=== PATIENT | female | born 1945 | race Caucasian/White ===

== ENCOUNTER 2016-07-12 12:48 | Day surgery (SDC) | payer MEDICARE ==
[2016-07-12 13:14] VITALS: BP 129/72; PULSE 78; RESP 20; TEMP 97.8; O2SAT 98
[2016-07-12] MEDS ORDERED: FISH120014 (13:23)
[2016-07-12] MEDS ORDERED: LABE300T PO (13:23)
[2016-07-12] MEDS ORDERED: [UNRECOGNIZED DRUG - CODE] PO (13:23)
[2016-07-12] MEDS ORDERED: MULTCAP13 (13:23)
[2016-07-12] MEDS ORDERED: HUMI40KI SQ (13:23)
[2016-07-12] MEDS ORDERED: FOLI5CAP PO (13:23)
[2016-07-12] MEDS ORDERED: GLUC1CAP16 (13:23)
--- NOTE | 2016-07-12 16:53 | RADRPT ---
EXAM DATE/TIME: 07/12/2016 00:00 [facility] COMPARISON : No previous studies available for comparison. INDICATIONS : Consult OBJECTIVE: Temperature: 97.8 Heart Rate: 78 Blood Pressure: 129/72 Respiratory: 20 Oximetry: 98 PNEUMONIA VACCINE: NO HISTORY OF PRESENT ILLNESS: The patient is a 71-year-old with a three-month history of left lower extremity claudication. The pat ient states she is able to walk approximately 3 blocks at which time she experiences significant cram ping in the left calf. She states this is significantly impacting per lifestyle. The patient underwen t CT angiography with bilateral lower extremity runoff at [facility]. This demonstrated diffuse moderate vascular disease. The patient states she was a 2 pack a day smoker until approximately 12 y ears ago and has not smoked since. PAST MEDICAL HISTORY : 1. Hypertension. 2. Hypercholesterolemia. 3. psoriatic arthritis 4. fatty liver 5. ocular migraines PAST SURGICAL HISTORY : 1. Appendectomy. 2. cataract surgery, bilat SOCIAL HISTORY : Social alcohol use. ALLERGIES: 1. Sulfaplaquennil 2. remicade 3. simvastatin 4. trazodone 1. labetalol 300 mg mg b.i.d. exforgeHCT 5-160-12.5 mg q.d. folic acid 1 mg q.d. humira 40 mg prn PHYSICAL EXAMINATION: Mildly obese 71-year-old white female in no acute distress. There is a faintly palpable dorsalis pedis pulse in the left foot. The posterior tibial pulse on the left is faintly dopplerable. On the right, there is a dopplerable dorsalis pedis and posterior tibial . There is no evidence of tissue loss within either foot. There is adequate capillary refill. Cardiovascular: Regular rate and rhythm. Lungs: CTA. IMAGING STUDIES: The patient's CT angiogram from [facility] was reviewed. ASSESSMENT: 71-year-old with life limiting claudication in the left lower extremity. CT angiography demonstrates fairly diffuse vascular disease. PLAN: The patient will be scheduled for angiogram and runoff with possible atherectomy on the left. The [facility] ient was advised the CT scan demonstrated densely calcified atherosclerotic plaques and this may not be amenable to atherectomy for treatment. The risk, benefits and potential palpitations were discussed in detail. The patient understands these risks. TIME SPENT: 30 minutes Javier Schneider MD on July 12, 2016 at 16:46 Board Certified Radiologist. This report was verified electronically.
== END 2016-07-12 14:00 | disposition home or self-care (01) ==
LOC: HROP 12:48 → HRIP 12:50 → HROP 14:00
PROVIDERS: ATTEND Family Medicine
DX: I73.9 Peripheral vascular disease, unspecified (principal); I10 Essential (primary) hypertension; E78.00 Pure hypercholesterolemia, unspecified

== ENCOUNTER 2016-07-19 07:22 | Inpatient (IN) | payer MEDICARE ==
[~2016-07-19] VITALS: Ht 172.7 cm; Wt 91.5 kg
[~2016-07-19 07:22] MED LIST: FISH120014; FOLI5CAP PO; GLUC1CAP16; HUMI40KI SQ; LABE300T PO; MULTCAP13; [UNRECOGNIZED DRUG - CODE] PO
[2016-07-19 07:41] VITALS: BP 143/79; PULSE 72; RESP 20; TEMP 97.9; O2SAT 94
[2016-07-19 08:24] LABS: AUTOMATED NEUTROPHIL # 2.6 TH/MM3 (1.8-7.7); BASOPHIL % 0.6 % (0.0-2.0); EOSINOPHIL # 0.1 TH/MM3 (0-0.4); EOSINOPHIL % 2.4 % (0.0-4.0); HEMATOCRIT 36.7 % (35.0-46.0); HEMO FLAGS DIFF FINAL; LYMPH % 33.8 % (9.0-44.0); LYMPHOCYTE # 1.7 TH/MM3 (1.0-4.8); MEAN CELL VOLUME 98.7 FL (80.0-100.0); MEAN CORPUSCULAR HEMOGLOBIN 34.4 PG (27.0-34.0); MEAN CORPUSCULAR HGB CONC 34.9 % (32.0-36.0); MONO % 13.1 % (0.0-8.0); NEUT % 50.1 % (16.0-70.0); PLATELET COUNT 159 TH/MM3 (150-450); RED BLOOD COUNT 3.72 MIL/MM3 (4.00-5.30); WHITE BLOOD COUNT 5.2 TH/MM3 (4.0-11.0)
[2016-07-19 08:36] LABS: APTT (PATIENT) 28.9 SEC (24.3-30.1); PROTHROMBIN TIME - PATIENT 11.4 SEC (9.8-11.6)
[2016-07-19 08:43] LABS: BICARBONATE 25.9 MEQ/L (21.0-32.0); POTASSIUM 3.7 MEQ/L (3.5-5.1)
[2016-07-19] MEDS ORDERED: MIDAZOLAM HCL 5 MG/5 ML VIAL ONE ×2 (10:45→11:43)
[2016-07-19] MEDS ORDERED: fentaNYL CITRATE 250 MCG/5 ML AMP ONE ×3 (10:45→17:27)
[2016-07-19] MEDS: SODIUM CHLOR 0.9% 1000 ML INJ 1,000 ML IV SCH ×3 (10:50→17:28)
[2016-07-19] MEDS ORDERED: HEPARIN SODIUM - IV 10,000 UNITS/10 ML VIAL ONE (11:46)
[2016-07-19] MEDS ORDERED: LACTATED RINGER'S 1000 ML INJ 1,000 ML IV ONE (12:00)
[2016-07-19] MEDS ORDERED: ONDANSETRON HCL 4 MG/2 ML VIAL IV PUSH ONE (12:00)
[2016-07-19] MEDS ORDERED: ePHEDrine/NS 25 MG/5 ML SYR IV ONE (12:00)
[2016-07-19] MEDS ORDERED: PROPOFOL 200 MG/20 ML AMP IV ONE (12:00)
[2016-07-19] MEDS ORDERED: SODIUM CHLOR 0.9% 250 ML INJ 250 ML IV ONE (12:00)
[2016-07-19] MEDS ORDERED: HEPARIN - 10,000 UNITS/ML IV ADDITIVE OTHER ONE (12:00)
[2016-07-19] MEDS ORDERED: NEOSTIGMINE 3 MG/3 ML SYR IV ONE (12:00)
[2016-07-19] MEDS ORDERED: SODIUM CHLORID 0.9% 500 ML INJ 500 ML IV ONE (12:00)
[2016-07-19] MEDS ORDERED: PHENYLEPH/NS 1000 MCG/10 ML SYR IV ONE (12:00)
[2016-07-19] MEDS ORDERED: NORMOSOL R INJ 4,000 ML IV ONE (12:00)
[2016-07-19] MEDS ORDERED: SODIUM CHLOR 0.9% 1000 ML INJ 1,000 ML IV SCH (13:25)
[2016-07-19] MEDS ORDERED: ceFAZolin INJ 1,000 MG VIAL IV ONE (13:26)
--- NOTE | 2016-07-19 13:29 | PD.RAD ---
Post Procedure Progress Note Pre Procedure Diagnosis: (1) Peripheral vascular disease Post Procedure Diagnosis: (1) Peripheral vascular disease Procedure Date: Jul 19, 2016 Supervising Radiologist: Godwin Abraham Proceduralist/Assist: Cassie Monte RT(R)(), Zenia Alas RT(R)() Anesthesia: Conscious Sedation Plan of Activity Patient to Unit: ROPU Patient Condition: Good See PACS Report for procedural detail/treatment Vascular-Arterial Procedure Procedure 1 Procedure Site: Left Leg Procedure(s): Angiogram, Atherectomy (vessel perforation patient to OR for repair) Access Access Site(s): Right Femoral Artery Closure Site(s): Right vascular closure device Godwin Abraham MD Jul 19, 2016 13:29
[2016-07-19] MEDS ORDERED: oxyCODONE/ACETAMINOPHEN 5 MG/325 MG TAB PO PRN (13:30)
[2016-07-19] MEDS ORDERED: HEPARIN SODIUM - SQ 10,000 UNITS/ML VIAL OTHER ONE (13:37)
[2016-07-19] MEDS ORDERED: IODIXANOL 320 MG/ML 50 ML VIAL (for RAD SPEC) I-ARTERIAL ONE (13:49)
[2016-07-19 14:16] LABS: BLOOD GAS CARBOXYHEMOGLOBIN 1.8 % (0-4); BLOOD GAS HCO3 22 mmol/L (22-26); BLOOD GAS METHEMOGLOBIN 0.9 % (0-2); BLOOD GAS O2 HGB SATURATION 97 % (90-100); BLOOD GAS OXYGEN CONTENT 18.2 Vol % (12.0-20.0); BLOOD GAS PCO2 40 mmHg (38-42); BLOOD GAS PO2 219 mmHg (61-120); TEMP CORR TO 98.6
[2016-07-19 14:17] LABS: CRITICAL VALUE NO; DRAW SITE ART LINE; FIO2 57 %; OXYGEN DEVICE SEE OR CHART; STAT YES
[2016-07-19 15:11] LABS: HEMATOCRIT 26.6 % (35.0-46.0); REVIEW FLAG FINAL
[2016-07-19 16:01] LABS: AUTOMATED NEUTROPHIL # 3.1 TH/MM3 (1.8-7.7); BASOPHIL % 0.7 % (0.0-2.0); EOSINOPHIL # 0.1 TH/MM3 (0-0.4); EOSINOPHIL % 2.4 % (0.0-4.0); HEMATOCRIT 24.7 % (35.0-46.0); HEMO FLAGS DIFF FINAL; LYMPH % 34.4 % (9.0-44.0); MEAN CELL VOLUME 99.7 FL (80.0-100.0); MEAN CORPUSCULAR HEMOGLOBIN 35.2 PG (27.0-34.0); MEAN CORPUSCULAR HGB CONC 35.3 % (32.0-36.0); MONO % 9.4 % (0.0-8.0); NEUT % 53.1 % (16.0-70.0); PLATELET COUNT 146 TH/MM3 (150-450); RED BLOOD COUNT 2.47 MIL/MM3 (4.00-5.30); RED CELL DISTRIBUTION WIDTH 12.9 % (11.6-17.2); WHITE BLOOD COUNT 5.9 TH/MM3 (4.0-11.0)
[2016-07-19 16:08] LABS: BLOOD GAS BASE EXCESS -1.5 mmol/L (-2-2); BLOOD GAS CARBOXYHEMOGLOBIN 2.2 % (0-4); BLOOD GAS HCO3 23 mmol/L (22-26); BLOOD GAS O2 HGB SATURATION 97 % (90-100); BLOOD GAS OXYGEN CONTENT 11.9 Vol % (12.0-20.0); BLOOD GAS PCO2 38 mmHg (38-42); BLOOD GAS PO2 240 mmHg (61-120); BLOOD GAS TOTAL HGB 8.3 G/DL (12.0-16.0); CRITICAL VALUE NO; DRAW SITE ART LINE; OXYGEN DEVICE VENTILATOR; STAT YES; TEMP CORR TO 98.6; VENT SETTINGS IN OR
[2016-07-19] MEDS ORDERED: MIDAZOLAM HCL 2 MG/2 ML VIAL ONE (17:27)
[2016-07-19] MEDS ORDERED: MORPHINE SULFATE 4 MG/ML INJ IV PRN (17:30)
[2016-07-19] MEDS ORDERED: NALOXONE HCL 0.4 MG/ML AMP IV PRN (17:30)
[2016-07-19] MEDS ORDERED: ONDANSETRON HCL 4 MG/2 ML VIAL IV PRN (17:30)
[2016-07-19] MEDS ORDERED: Post-op Orders (for Pharmacy) MISC XX ONE (17:30)
[2016-07-19] MEDS ORDERED: SODIUM CHLORIDE 0.9% FLUSH 5 ML FLUSH IVF PRN (17:30)
--- NOTE | 2016-07-19 17:49 | RADRPT ---
EXAM DATE/TIME: 07/19/2016 10:55 [facility] COMPARISON: No previous studies available for comparison. INDICATIONS : Patient with intermitent claudication left leg. MEDICAL HISTORY : 1. RA 2. PAD 3. Thoracic aneurysm 4. PAD 5. HTN SURGICAL HISTORY : 1. Appendectomy 2. Bilateral cataract surgery ENCOUNTER: Initial ACUITY: 2 months PAIN SCORE: 0/10 FLUORO TIME: 20.3 minutes IMAGE SERIES: 13 ACCESS SITE: Right Femoral artery SEDATION TIME: 105 minutes CONTRAST: 1.) 100 cc Visipaque (iodixanol) MEDICATION(S): 1.) 7 mg midazolam (Versed) IV 2.) 350 mcg fentanyl (Sublimaze) IV DEVICE(S): 1.) Right common femoral artery 8 fr Angio-Seal 2.) Left superficial femoral artery LSC atherectomy device 3.) Left superficial femoral artery 5 SpideRX embolic protection PROCEDURE : 1. Ultrasound-guided puncture of the access site. 2. Angiography of the access site prior to closure device. 3. Conscious sedation with continuous EKG and Oximetry monitoring. 4. Percutaneous closure of the access site. 5. Angiography of the left lower Dillon he be a left common femoral artery approach 6. atherectomy of the left superficial femoral artery The risks, benefits and alternatives to the procedure were explained and verbal and written consent w as obtained. The site was prepped in sterile fashion. Full sterile technique was used, including ca p, mask, sterile gloves and gown and a large sterile sheet. Hand hygiene and 2% chlorhexidine and/or betadine/alcohol prep was utilized per protocol for cutaneous antisepsis. The skin and subcutaneous tissues were infiltrated with local anesthetic solution. With ultrasound and fluoroscopic guidance the selected artery was punctured and a vascular sheath was placed. Angiography of the common femoral artery was performed for evaluation prior to percutaneous closure device placement. An omni-flush catheter was placed over the aortic bifurcation into the left common iliac artery where angiography was performed demonstrating a patent external iliac and common femoral artery. The manuel ter was advanced into the common femoral artery were selective on of the left lower kidney was perfor med. The diagnostic portion examination demonstrates focal high-grade stenosis involving the origin of the superficial femoral artery greater than 90% with a second tandem stenosis 5 cm more distally. The re mainder of the runoff is intact. No inflow stenosis is identified. The catheter was exchanged for a 8 Mongolian sheath which was placed in the left common femoral artery. Over a guidewire atherectomy was performed of the proximal superficial femoral artery. Followup angio graphy demonstrated contained rupture over this segment. The procedure was terminated at this point a nd the patient is to go to the operating room for open repair. Hemostasis was obtained with the prescribed medicated closure device. Conscious sedation was perform ed with the prescribed dosages and duration as above in the presence of an independent trained radiol ogy nurse to assist in the monitoring of the patient. EKG and oximetry remained stable throughout th e procedure. CONCLUSION: 1. Contained rupture of the proximal superficial femoral artery following atherectomy. The patient is to go to the operating room for surgical repair. Godwin Abraham MD on July 19, 2016 at 17:44 Board Certified Radiologist. This report was verified electronically.
[2016-07-19] MEDS ORDERED: ACETAMINOPHEN 1000 MG/100 ML VIAL IV ONE (18:04)
[2016-07-19 18:26] LABS: HEMATOCRIT 28.8 % (35.0-46.0); REVIEW FLAG FINAL
[2016-07-19] MEDS ORDERED: DO NOT ADM ANY ANTICOAGULANT DRUGS XX PRN (18:30)
[2016-07-19 18:40] VITALS: BP 115/60; PULSE 80; RESP 18; TEMP 98; O2SAT 96
[2016-07-19 19:00] VITALS: BP_SYST 105; BP_SYST 112; BP_DIAS 46; BP_DIAS 58; PULSE 75; RESP 18; TEMP 97.9; O2SAT 92
[2016-07-19] MEDS: CLINDAMYCIN INJ 600 MG in SODIUM CHLORIDE 0.9% INJ 50 ML IV SCH (20:11)
[2016-07-19] MEDS: PANTOPRAZOLE SOD 40 MG DELAYED RELEASE TAB PO SCH (20:11)
[2016-07-19] MEDS: SODIUM CHLORIDE 0.9% FLUSH 5 ML FLUSH IVF SCH (20:12)
[2016-07-19 22:15] VITALS: O2SAT 93
[2016-07-19 23:00] VITALS: BP_SYST 114; BP_SYST 127; BP_DIAS 49; BP_DIAS 60; PULSE 67; PULSE 75; RESP 18; TEMP 98.2; O2SAT 94
[2016-07-20] VITALS (13 sets, daily range): BP systolic 82–150; BP diastolic 48–77; PULSE 73–120; RESP 18–22; TEMP 97.6–100; O2SAT 92–98
[2016-07-20] MEDS: oxyCODONE/ACETAMINOPHEN 5 MG/325 MG TAB PO PRN ×3 (00:44→12:23)
[2016-07-20] MEDS: CLINDAMYCIN INJ 600 MG in SODIUM CHLORIDE 0.9% INJ 50 ML IV SCH ×2 (02:00→09:33)
[2016-07-20] MEDS: SODIUM CHLOR 0.9% 1000 ML INJ 1,000 ML IV SCH ×3 (03:28→23:28)
[2016-07-20 04:50] LABS: AUTOMATED NEUTROPHIL # 4.4 TH/MM3 (1.8-7.7); BASOPHIL % 0.6 % (0.0-2.0); EOSINOPHIL # 0.1 TH/MM3 (0-0.4); EOSINOPHIL % 2.1 % (0.0-4.0); HEMATOCRIT 31.5 % (35.0-46.0); HEMO FLAGS DIFF FINAL; LYMPH % 20.1 % (9.0-44.0); LYMPHOCYTE # 1.4 TH/MM3 (1.0-4.8); MEAN CELL VOLUME 95.9 FL (80.0-100.0); MEAN CORPUSCULAR HEMOGLOBIN 33.5 PG (27.0-34.0); MEAN CORPUSCULAR HGB CONC 34.9 % (32.0-36.0); MONO % 12.6 % (0.0-8.0); NEUT % 64.6 % (16.0-70.0); PLATELET COUNT 106 TH/MM3 (150-450); RED BLOOD COUNT 3.29 MIL/MM3 (4.00-5.30); RED CELL DISTRIBUTION WIDTH 16.7 % (11.6-17.2); WHITE BLOOD COUNT 6.9 TH/MM3 (4.0-11.0)
[2016-07-20 05:30] LABS: BICARBONATE 24.9 MEQ/L (21.0-32.0); POTASSIUM 3.7 MEQ/L (3.5-5.1)
[2016-07-20 06:13] LABS: CALCIUM-PROTEIN CORRECTED 7.9 MG/DL (8.5-10.1)
[2016-07-20] MEDS: SODIUM CHLORIDE 0.9% FLUSH 5 ML FLUSH IVF SCH ×2 (08:19→23:28)
[2016-07-20] MEDS: CLOPIDOGREL 75 MG TAB PO SCH (08:41)
[2016-07-20] MEDS ORDERED: DILTIAZEM INJ 125 MG in SODIUM CHLORIDE 0.9% INJ 100 ML IV SCH (11:45)
[2016-07-20] MEDS ORDERED: DILTIAZEM HCL 25 MG/5 ML VIAL ONE (11:47)
[2016-07-20] MEDS: LABETALOL HCL 300 MG TAB PO SCH ×2 (12:48→23:27)
[2016-07-20] MEDS ORDERED: SODIUM CHLORID 0.9% 500 ML INJ 500 ML IV SCH (14:30)
[2016-07-20] MEDS: ENOXAPARIN SODIUM 40 MG/0.4 ML SYRINGE SQ SCH (16:08)
--- NOTE | 2016-07-20 16:46 | PD.CONS ---
HPI Service [facility] Consult Requested By Dr. Wheeler Reason for Consult medical management Primary Care Physician Evie Goldman MD Diagnoses: History of Present Illness 71 y/o with severe PVD who p/w left femoral artery repair. Patient had elective procedure done by IR on 07/19/16 left atherectomy that perforated so went to OR for femoral bypass graft. [facility] consulted for medical management. Spoke to patient's nurse who stated patient went to atrial fibrillation with RVR. She was given Cardizem and became hypotensive, but that was stopped and BP was improved. patient was then put back labetalol and went back into sinus rhythm. Datacap Developer was consulted. Patient stated she is ambulating but sore at the wound site otherwise she stated she is doing well and pain is controlled. She denied any claudication with recent ambulation. Denied any CP, SOB, palpitation, and lightheadedness/dizziness. Review of Systems Constitutional: DENIES: Diaphoretic episodes, Fatigue, Fever, Weight gain, Weight loss, Chills, Dizziness, Change in appetite, Night Sweats Endocrine: DENIES: Abnorml menstrual pattern, Heat/cold intolerance, Polydipsia , Polyuria, Polyphagia Eyes: DENIES: Blurred vision, Diplopia, Eye inflammation, Eye pain, Vision loss , Photosensitivity, Double Vision Ears, nose, mouth, throat: DENIES: Tinnitus, Hearing loss, Vertigo, Nasal discharge, Oral lesions, Throat pain, Hoarseness, Ear Pain, Running Nose, Epistaxis, Sinus Pain, Toothache, Odynophagia Respiratory: DENIES: Apneas, Cough, Snoring, Wheezing, Hemoptysis, Sputum production, Shortness of breath Cardiovascular: DENIES: Chest pain, Palpitations, Syncope, Dyspnea on Exertion , PND, Lower Extremity Edema, Orthopnea, Claudication Gastrointestinal: DENIES: Abdominal pain, Black stools, Bloody stools, Constipation, Diarrhea, Nausea, Vomiting, Difficulty Swallowing, Anorexia Genitourinary: DENIES: Abnormal vaginal bleeding, Dysmenorrhea, Dyspareunia, Sexual dysfunction, Urinary frequency, Urinary incontinence, Urgency, Hematuria , Dysuria, Nocturia, Vaginal discharge Musculoskeletal: DENIES: Joint pain, Muscle aches, Stiffness, Joint Swelling, Back pain, Neck pain Integumentary: DENIES: Abnormal pigmentation, Pruritus, Rash, Nail changes, Breast masses, Breast skin changes, Nipple discharge Hematologic/lymphatic: DENIES: Bruising, Lymphadenopathy Immunologic/allergic: DENIES: Eczema, Urticaria Neurologic: DENIES: Abnormal gait, Headache, Localized weakness, Paresthesias, Seizures, Speech Problems, Tremor, Poor Balance Psychiatric: DENIES: Anxiety, Confusion, Mood changes, Depression, Hallucinations, Agitation, Suicidal Ideation, Homicidal Ideation, Delusions Past Family Social History Allergies: Coded Allergies: Remicade (Verified Adverse Reaction, Severe, severe nausea and vomiting, ) Plaquenil (Verified Adverse Reaction, Intermediate, get migraine headache , 07/12/16) Simvastatin (Verified Adverse Reaction, Intermediate, migraine headache, ) Sulfa (Verified Adverse Reaction, Intermediate, migraine headaches, 07/12/16 ) Trazodone (Verified Adverse Reaction, Intermediate, migraine headache, 07/12) Past Medical History severe PVD psoriatic arthritis hypertension Past Surgical History appendectomy Reported Medications Reported Meds & Active Scripts Active Reported Multi Complete (Multiple Vitamins W/ Minerals) 1 Cap Cap DAILY Fish Oil ([place]-3 Fatty Acids) 1,200 Mg Cap 2,000 BID Glucosamine Chondroitin (Sljjvccamin-Fgqnimribzb-Rqc C-) 1 Cap Cap Humira 2-Pack Inj (Adalimumab 2-Pack Inj) 40 Mg/0.8 Ml Syr 40 Mg SQ Q14D Folic Acid 5 Mg Cap 1 Mg PO DAILY Exforge Hct (Hddxylyuyu-Iyiyjykzm-Ksghjsccqbtllxzwajn) 5-160-12.5 Mg Tab 1 Tab PO DAILY Labetalol (Labetalol HCl) 300 Mg Tab 300 Mg PO BID Active Ordered Medications Current Medications Sodium Chloride (NS 1000 ml Inj) 1,000 ml @ 100 mls/hr Q10H IV Last administered on 07/19/16 15:05; Start 07/19/16 at 07:45 Midazolam HCl (Versed Inj) 5 mg STK-MED ONCE .ROUTE Last administered on 10:45; Start 07/19/16 at 10:45; Stop 07/19/16 at 10:46; Status DC Fentanyl Citrate (fentaNYL INJ) 250 mcg STK-MED ONCE .ROUTE Last administered on 07/19/16 10:45; Start 07/19/16 at 10:45; Stop 07/19/16 at 10:46; Status DC Midazolam HCl (Versed Inj) 5 mg STK-MED ONCE .ROUTE Last administered on 11:43; Start 07/19/16 at 11:43; Stop 07/19/16 at 11:44; Status DC Fentanyl Citrate (fentaNYL INJ) 250 mcg STK-MED ONCE .ROUTE Last administered on 07/19/16 11:43; Start 07/19/16 at 11:43; Stop 07/19/16 at 11:44; Status DC Heparin Sodium (Porcine) 97988 units 10,000 units STK-MED ONCE .ROUTE Last administered on 07/19/16 11:46; Start 07/19/16 at 11:46; Stop 07/19/16 at 11:47; Status DC Sodium Chloride (NS 1000 ml Inj) 1,000 ml @ 100 mls/hr Q10H IV ; Start 07/19/16 at 13:25; Stop 07/19/16 at 23:24; Status DC Acetaminophen (Tylenol) 650 mg Q4H PRN PO PAIN SCALE 1 TO 10; Start 07/19/16 at 13:30 Oxycodone/ Acetaminophen (Percocet 5-325 Mg) 1 tab Q4H PRN PO Pain not relieved by Tylenol; Start 07/19/16 at 13:30 Heparin Sodium (Porcine) (Heparin Inj) 10,000 units STK-MED ONCE OTHER Last administered on 07/19/16 13:37; Start 07/19/16 at 13:37; Stop 07/19/16 at 13:38; Status DC Iodixanol (Visipaque 320 Inj) 100 ml STK-MED ONCE I-ARTERIAL Last administered on 07/19/16 13:49; Start 07/19/16 at 13:49; Stop 07/19/16 at 13:50; Status DC Cefazolin Sodium (Ancef Inj) 1,000 mg STK-MED ONCE IV Last administered on 13:26; Start 07/19/16 at 13:26; Stop 07/19/16 at 15:37; Status DC Midazolam HCl (Versed Inj) 2 mg STK-MED ONCE .ROUTE ; Start 07/19/16 at 17:27; Stop 07/19/16 at 17:28; Status DC Fentanyl Citrate 250 mcg 250 mcg STK-MED ONCE .ROUTE ; Start 07/19/16 at 17:27; Stop 07/19/16 at 17:28; Status DC Sodium Chloride (NS 1000 ml Inj) 1,000 ml @ 100 mls/hr Q10H IV Last administered on 07/20/16 14:51; Start 07/19/16 at 17:28 IV Flush (NS Flush) 2 ml UNSCH PRN IVF FLUSH AFTER USING IV ACCESS; Start at 17:30 IV Flush (NS Flush) 2 ml BID IVF Last administered on 07/19/16 20:12; Start 07/19/16 at 21:00 Ondansetron HCl (Zofran Inj) 4 mg Q6H PRN IV NAUSEA OR VOMITING; Start 07/19/16 at 17:30 Pantoprazole Sodium 40 mg 40 mg Q24H PO Last administered on 07/19/16 20:11; Start 07/19/16 at 18:00 Clindamycin Phosphate/Sodium Chloride (Cleocin Inj/NS Inj) 54 ml @ 108 mls/hr Q8H IV Last administered on 07/20/16 09:33; Start 07/19/16 at 18:00; Stop 07/20 at 10:29; Status DC Miscellaneous Information (Post-op Orders (for Pharmacy)) STAT ONCE XX ; Start 07/19/16 at 17:30; Stop 07/19/16 at 17:48; Status DC Oxycodone/ Acetaminophen (Percocet 5-325 Mg) 1 tab Q4H PRN PO PAIN SCALE 3 TO 5 Last administered on 07/20/16 12:23; Start 07/19/16 at 17:30 Morphine Sulfate (Morphine Inj) 4 mg Q2H PRN IV 6-10; Start 07/19/16 at 17:30 Naloxone HCl (Narcan Inj) 0.4 mg UNSCH PRN IV SEE LABEL COMMENTS; Start at 17:30 Enoxaparin Sodium (Lovenox Inj) 40 mg Q24H SQ Last administered on 07/20/16 16 :08; Start 07/20/16 at 16:00 Clopidogrel Bisulfate (Plavix) 75 mg DAILY PO Last administered on 07/20/16 08 :41; Start 07/19/16 at 18:00 Acetaminophen (Ofirmev Inj) 1,000 mg STK-MED ONCE IV Last administered on 18:04; Start 07/19/16 at 18:04; Stop 07/19/16 at 18:05; Status DC Miscellaneous Information ALL NURSING DEPARTME... UNSCH PRN XX SEE LABEL COMMENTS; Start 07/19/16 at 18:30; Stop 07/20/16 at 18:29 Diltiazem HCl 25 mg 25 mg STK-MED ONCE .ROUTE Last administered on 07/20/16 11 :49; Start 07/20/16 at 11:47; Stop 07/20/16 at 11:48; Status DC Diltiazem HCl/ Sodium Chloride (Cardizem Inj/NS Inj) 125 ml @ 0 mls/hr TITRATE IV Last administered on 07/20/16 13:00; Start 07/20/16 at 11:45; Stop at 14:27; Status DC Labetalol HCl (Trandate) 300 mg Q12HR PO Last administered on 07/20/16 12:48; Start 07/20/16 at 12:00 Propofol (Diprivan 200 Mg/20 ml Inj) 200 mg STK-MED ONCE IV ; Start 07/19/16 at 12:00; Stop 07/20/16 at 12:44; Status DC Ephedrine Sulfate (ePHEDrine/NS 25 MG/5 ML SYR) 25 mg STK-MED ONCE IV ; Start at 12:00; Stop 07/20/16 at 12:44; Status DC Ondansetron HCl 4 mg 4 mg STK-MED ONCE IV PUSH ; Start 07/19/16 at 12:00; Stop at 12:44; Status DC Lactated Ringer's 1,000 ml @ As Directed STK-MED ONCE IV ; Start 07/19/16 at 12: 00; Stop 07/20/16 at 12:44; Status DC Sodium Chloride 250 ml @ As Directed STK-MED ONCE IV ; Start 07/19/16 at 12:00; Stop 07/20/16 at 12:44; Status DC Sodium Chloride 500 ml @ As Directed STK-MED ONCE IV ; Start 07/19/16 at 12:00; Stop 07/20/16 at 12:44; Status DC Parenteral Electrolytes (Normosol R Inj) 4,000 ml @ As Directed STK-MED ONCE IV ; Start 07/19/16 at 12:00; Stop 07/20/16 at 12:44; Status DC Neostigmine Methylsulfate (Prostigmin Inj) 2 mg STK-MED ONCE IV ; Start 07/19/16 at 12:00; Stop 07/20/16 at 12:44; Status DC Phenylephrine HCl (Neosynephrine/ NS 1000 Mcg/10ml Syr) 1,000 mcg STK-MED ONCE IV ; Start 07/19/16 at 12:00; Stop 07/20/16 at 12:44; Status DC Heparin Sodium (Porcine) 79241 units 30,000 units STK-MED ONCE OTHER ; Start 07/19/16 at 12:00; Stop 07/20/16 at 12:50; Status DC Sodium Chloride (NS 500 ml Inj) 500 ml @ 0 mls/hr Q0M IV ; Start 07/20/16 at 14: 30; Stop 07/20/16 at 14:31; Status DC Family History father had multiple cancers including, pancreatic, liver Social History lives with her . drinks 1-2 wine a day. negative for tobacco use. stopped about 20 years ago. Physical Exam Vital Signs Vital Signs Date Time Temp Pulse Resp B/P Pulse Ox O2 Delivery O2 Flow Rate FiO2 07/20/16 15:00 85 07/20/16 15:00 98.8 92 18 82/50 98 Arterial Line 07/20/16 15:00 98 Nasal Cannula 2.00 07/20/16 11:00 98.2 120 18 98 103/77 07/20/16 11:00 98 Room Air 07/20/16 11:00 107 07/20/16 08:00 95 Nasal Cannula 3.00 07/20/16 07:00 80 07/20/16 07:00 98.8 80 18 100/58 96 110/50 07/20/16 07:00 96 Nasal Cannula 3.00 07/20/16 06:00 80 07/20/16 05:00 78 07/20/16 04:00 74 07/20/16 03:00 97.6 73 22 103/63 92 111/48 07/20/16 03:00 94 Nasal Cannula 3.00 07/20/16 03:00 76 07/20/16 01:45 22 07/20/16 00:00 75 07/19/16 23:00 94 Nasal Cannula 3.00 07/19/16 23:00 98.2 67 18 114/60 94 127/49 07/19/16 23:00 75 07/19/16 23:00 94 Nasal Cannula 3.00 07/19/16 22:15 93 Nasal Cannula 2.00 07/19/16 19:00 92 Nasal Cannula 3.00 07/19/16 19:00 92 Nasal Cannula 3.00 07/19/16 19:00 97.9 75 18 112/58 92 105/46 07/19/16 18:45 97.6 76 15 98/44 100 Nasal Cannula 3 07/19/16 18:40 98.0 80 18 115/60 96 07/19/16 18:30 75 15 108/49 100 Nasal Cannula 3 07/19/16 18:15 77 16 106/50 100 Nasal Cannula 3 07/19/16 18:00 75 15 106/49 100 Nasal Cannula 3 07/19/16 17:45 97.5 71 16 112/48 97 Nasal Cannula 3 07/19/16 17:30 64 15 100/45 97 Nasal Cannula 3 07/19/16 17:18 97.9 65 15 70/55 95 Nasal Cannula 3 Physical Exam GENERAL: This is a well-nourished, well-developed patient, in no apparent distress. SKIN: No rashes, ecchymoses or lesions. Cool and dry. HEAD: Atraumatic. Normocephalic. No temporal or scalp tenderness. EYES: Pupils equal round and reactive. Extraocular motions intact. No scleral icterus. No injection or drainage. ENT: Nose without bleeding, purulent drainage or septal hematoma. Throat without erythema, tonsillar hypertrophy or exudate. Uvula midline. Airway patent. NECK: Trachea midline. No JVD or lymphadenopathy. Supple, nontender, no meningeal signs. CARDIOVASCULAR: Regular rate and rhythm without murmurs, gallops, or rubs. RESPIRATORY: Clear to auscultation. Breath sounds equal bilaterally. No wheezes , rales, or rhonchi. GASTROINTESTINAL: Abdomen soft, non-tender, nondistended. No hepato-splenomegaly , or palpable masses. No guarding. MUSCULOSKELETAL: Extremities without clubbing, cyanosis, or edema. No joint tenderness, effusion, or edema noted. No calf tenderness. Negative Homans sign bilaterally. wound on left groin with DEB drain in place serosanguineous. NEUROLOGICAL: Awake and alert. Cranial nerves II through XII intact. Motor and sensory grossly within normal limits. Five out of 5 muscle strength in all muscle groups. Normal speech. Laboratory Laboratory Tests Test 07/19/16 07/19/16 07/20/16 17:30 21:15 04:15 Hemoglobin 9.8 11.0 11.0 Hematocrit 28.8 31.5 White Blood Count 6.9 Red Blood Count 3.29 Mean Corpuscular Volume 95.9 Mean Corpuscular Hemoglobin 33.5 Mean Corpuscular Hemoglobin 34.9 Concent Red Cell Distribution Width 16.7 Platelet Count 106 Mean Platelet Volume 7.4 Neutrophils (%) (Auto) 64.6 Lymphocytes (%) (Auto) 20.1 Monocytes (%) (Auto) 12.6 Eosinophils (%) (Auto) 2.1 Basophils (%) (Auto) 0.6 Neutrophils # (Auto) 4.4 Lymphocytes # (Auto) 1.4 Monocytes # (Auto) 0.9 Eosinophils # (Auto) 0.1 Basophils # (Auto) 0.0 CBC Comment DIFF FINAL Differential Comment Sodium Level 140 Potassium Level 3.7 Chloride Level 107 Carbon Dioxide Level 24.9 Anion Gap 8 Blood Urea Nitrogen 6 Creatinine 0.53 Estimat Glomerular Filtration 114 Rate Random Glucose 92 Calcium Level 7.0 Protein Corrected Calcium 7.9 Total Protein 5.4 Result Diagram: 07/20/16 0415 07/20/16 0415 Imaging Last Impressions Lower Extremity Angiography 07/19/16 1353 Signed Impressions: Service Date/Time: July 10:55 - CONCLUSION: 1. Contained rupture of the proximal superficial femoral artery following atherectomy. The patient is to go to the operating room for surgical repair. Godwin Abraham MD Assessment and Plan Assessment and Plan 71 y/o with sever PVD severe PVD -s/p left atherectomy with vessel perforation; femoral bypass graft on 07/20/16 -being managed by vascular. Brief episode of atrial fibrillation -s/p Cardizem but became hypotensive. -now in sinus rhythm. on home labetalol. -stone polisher consulted. HTN -home medication resume DVT prophylaxis -Rosalba Hathaway MD Jul 20, 2016 16:46
[2016-07-20] MEDS: PANTOPRAZOLE SOD 40 MG DELAYED RELEASE TAB PO SCH (17:43)
--- NOTE | 2016-07-20 17:43 | PD.CAR.PN ---
CVT Progress Note Subjective/Hospital Course: Patient is status post left distal external iliac common femoral and superficial femoral artery reconstruction with a Cro[place]on-Urban graft with reimplantation of the deep femoral artery Patient is a brisk dopplerable distal pulses both feet are warm Incision is clean and dry Patient is normal neurologic function Today patient developed the A. fib with RVR and is treated currently with Cardizem. Cardizem treatment had to be put on hold due to hypotension Give patient some more volume and this should probably help along From vascular point patient is stable and well perfused If patient needs to be heparinized for any reason is fine with me and will not affect the vascular surgery Objective: Vital Signs Date Time Temp Pulse Resp B/P Pulse Ox O2 Delivery O2 Flow Rate FiO2 07/20/16 15:00 85 07/20/16 15:00 98.8 92 18 82/50 98 Arterial Line 07/20/16 15:00 98 Nasal Cannula 2.00 07/20/16 11:00 98.2 120 18 98 103/77 07/20/16 11:00 98 Room Air 07/20/16 11:00 107 07/20/16 08:00 95 Nasal Cannula 3.00 07/20/16 07:00 80 07/20/16 07:00 98.8 80 18 100/58 96 110/50 07/20/16 07:00 96 Nasal Cannula 3.00 07/20/16 06:00 80 07/20/16 05:00 78 07/20/16 04:00 74 07/20/16 03:00 97.6 73 22 103/63 92 111/48 07/20/16 03:00 94 Nasal Cannula 3.00 07/20/16 03:00 76 07/20/16 01:45 22 07/20/16 00:00 75 07/19/16 23:00 94 Nasal Cannula 3.00 07/19/16 23:00 98.2 67 18 114/60 94 127/49 07/19/16 23:00 75 07/19/16 23:00 94 Nasal Cannula 3.00 07/19/16 22:15 93 Nasal Cannula 2.00 07/19/16 19:00 92 Nasal Cannula 3.00 07/19/16 19:00 92 Nasal Cannula 3.00 07/19/16 19:00 97.9 75 18 112/58 92 105/46 07/19/16 18:45 97.6 76 15 98/44 100 Nasal Cannula 3 07/19/16 18:40 98.0 80 18 115/60 96 07/19/16 18:30 75 15 108/49 100 Nasal Cannula 3 07/19/16 18:15 77 16 106/50 100 Nasal Cannula 3 07/19/16 18:00 75 15 106/49 100 Nasal Cannula 3 07/19/16 17:45 97.5 71 16 112/48 97 Nasal Cannula 3 Result Diagram: 07/20/16 0415 07/20/16 0415 Codi Wheeler MD Jul 20, 2016 17:43
--- NOTE | 2016-07-20 18:43 | EKG ---
Date Performed: 07/20/2016 Time Performed: 11:29:56 PTAGE: 71 years EKG: Atrial fibrillation with rapid ventricular response. Possible inferior infarct - age undete rmined Lateral ST-T changes may be due to myocardial ischemia Low QRS voltages in precordial leads Ab normal ECG NO PREVIOUS TRACING DOCTOR: Ronald Johnson Interpretating Date/Time 07/20/2016 18:40:50
--- NOTE | 2016-07-20 21:16 | PD.CONS ---
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 who p/w left femoral artery repair. Procedure was complicated by a perforation with an emergent femoral bypass graft. Post op patient went into atrial fibrillation with RVR. Special Projects Coordinator was consulted. Denies any CP, SOB, palpitation, and lightheadedness/dizziness. Review of Systems Consitutional: DENIES: Fatigue, Fever, Chills, Weight gain, Weight loss Eyes: DENIES: Amaurosis Fugax, Change in vision HEENT: DENIES: Lightheadedness, Change in hearing Respiratory: DENIES: See HPI, Cough, Snoring, Shortness of breath, Wheezing, Sputum production Cardiovascular: DENIES: See HPI, Chest pain, Palpitations, Syncope, Tachycardia Gastrointestinal: DENIES: Nausea, Vomiting, Change in bowel habits, Reflux, Bloody stools, Melena Genitourinary: DENIES: Urinary incontinence, Difficulty voiding Integumentary: DENIES: Rash Neurologic: DENIES: Tingling or numbness, Memory problems, Poor Balance, Stroke symptoms Musculoskeletal: DENIES: Joint pain, Muscle pain, Limited range of motion, Back pain Psychiatric: DENIES: Anxiety, Depression, Sleep disturbances Hematologic: DENIES: Bruising tendencies, Bleeding tendencies Endocrine: DENIES: Weight gain, Weight loss, Thyroid disease Past Family Social History Allergies: Coded Allergies: Remicade (Verified Adverse Reaction, Severe, severe nausea and vomiting, ) Plaquenil (Verified Adverse Reaction, Intermediate, get migraine headache , 07/12/16) Simvastatin (Verified Adverse Reaction, Intermediate, migraine headache, ) Sulfa (Verified Adverse Reaction, Intermediate, migraine headaches, 07/12/16 ) Trazodone (Verified Adverse Reaction, Intermediate, migraine headache, 07/12) Past Medical History HLD Reported Medications Reported Meds & Active Scripts Active Reported Multi Complete (Multiple Vitamins W/ Minerals) 1 Cap Cap DAILY Fish Oil ([place]-3 Fatty Acids) 1,200 Mg Cap 2,000 BID Glucosamine Chondroitin (Ykuhtnlrulb-Gzehkrlayiv-Bui C-) 1 Cap Cap Humira 2-Pack Inj (Adalimumab 2-Pack Inj) 40 Mg/0.8 Ml Syr 40 Mg SQ Q14D Folic Acid 5 Mg Cap 1 Mg PO DAILY Exforge Hct (Bhppwmvlgf-Tmnpqllfn-Keosfxfhwsygmotqjfp) 5-160-12.5 Mg Tab 1 Tab PO DAILY Labetalol (Labetalol HCl) 300 Mg Tab 300 Mg PO BID Reported Meds & Active Scripts Active Reported Multi Complete (Multiple Vitamins W/ Minerals) 1 Cap Cap DAILY Fish Oil ([place]-3 Fatty Acids) 1,200 Mg Cap 2,000 BID Glucosamine Chondroitin (Yzhfnpyowxw-Alqncyzbmjf-Bif C-) 1 Cap Cap Humira 2-Pack Inj (Adalimumab 2-Pack Inj) 40 Mg/0.8 Ml Syr 40 Mg SQ Q14D Folic Acid 5 Mg Cap 1 Mg PO DAILY Exforge Hct (Ywvzihxgll-Nvlgeicfl-Ukjppqdtmbgmjbqfiec) 5-160-12.5 Mg Tab 1 Tab PO DAILY Labetalol (Labetalol HCl) 300 Mg Tab 300 Mg PO BID Active Ordered Medications Current Medications Medications (Trade) Dose Ordered Sig/Marie Route Start Time Stop Time Status Last Admin (Tylenol) 650 mg Q4H PRN PO 07/19/16 13:30 Oxycodone/ Acetaminophen 1 tab 1 tab Q4H PRN PO 07/19/16 13:30 (NS 1000 ml Inj) 1,000 ml @ 100 mls/hr Q10H IV 07/19/16 17:28 07/20/16 14:51 (NS Flush) 2 ml UNSCH PRN IVF 07/19/16 17:30 (NS Flush) 2 ml BID IVF 07/19/16 21:00 07/19/16 20:12 (Zofran Inj) 4 mg Q6H PRN IV 07/19/16 17:30 (Protonix) 40 mg Q24H PO 07/19/16 18:00 07/20/16 17:43 (Percocet 5-325 Mg) 1 tab Q4H PRN PO 07/19/16 17:30 07/20/16 12:23 (Morphine Inj) 4 mg Q2H PRN IV 07/19/16 17:30 (Narcan Inj) 0.4 mg UNSCH PRN IV 07/19/16 17:30 (Lovenox Inj) 40 mg Q24H SQ 07/20/16 16:00 07/20/16 16:08 (Plavix) 75 mg DAILY PO 07/19/16 18:00 07/20/16 08:41 (Trandate) 300 mg Q12HR PO 07/20/16 12:00 07/20/16 12:48 Physical Exam Vital Signs Vital Signs Date Time Temp Pulse Resp B/P Pulse Ox O2 Delivery O2 Flow Rate FiO2 07/20/16 19:00 79 07/20/16 19:00 95 Nasal Cannula 2.00 07/20/16 15:00 85 07/20/16 15:00 98.8 92 18 82/50 98 Arterial Line 07/20/16 15:00 98 Nasal Cannula 2.00 07/20/16 11:00 98.2 120 18 98 103/77 07/20/16 11:00 98 Room Air 07/20/16 11:00 107 07/20/16 08:00 95 Nasal Cannula 3.00 07/20/16 07:00 80 07/20/16 07:00 98.8 80 18 100/58 96 110/50 07/20/16 07:00 96 Nasal Cannula 3.00 07/20/16 06:00 80 07/20/16 05:00 78 07/20/16 04:00 74 07/20/16 03:00 97.6 73 22 103/63 92 111/48 07/20/16 03:00 94 Nasal Cannula 3.00 07/20/16 03:00 76 07/20/16 01:45 22 07/20/16 00:00 75 07/19/16 23:00 94 Nasal Cannula 3.00 07/19/16 23:00 98.2 67 18 114/60 94 127/49 07/19/16 23:00 75 07/19/16 23:00 94 Nasal Cannula 3.00 07/19/16 22:15 93 Nasal Cannula 2.00 Physical Exam GENERAL: Well-nourished, well-developed patient. SKIN: Warm and dry. HEAD: Normocephalic. EYES: No scleral icterus. No injection or drainage. NECK: Supple, trachea midline. No JVD or lymphadenopathy. CARDIOVASCULAR: Regular rate and rhythm without murmurs, gallops, or rubs. RESPIRATORY: Breath sounds equal bilaterally. No accessory muscle use. GASTROINTESTINAL: Abdomen soft, non-tender, nondistended. EXTREMITIES: No cyanosis, or edema. NEUROLOGICAL: Awake, alert, and oriented x 3. Non-focal. Laboratory Laboratory Tests Test 3/9/17 3/10/17 21:15 04:15 Hemoglobin 11.0 11.0 White Blood Count 6.9 Red Blood Count 3.29 Hematocrit 31.5 Mean Corpuscular Volume 95.9 Mean Corpuscular Hemoglobin 33.5 Mean Corpuscular Hemoglobin 34.9 Concent Red Cell Distribution Width 16.7 Platelet Count 106 Mean Platelet Volume 7.4 Neutrophils (%) (Auto) 64.6 Lymphocytes (%) (Auto) 20.1 Monocytes (%) (Auto) 12.6 Eosinophils (%) (Auto) 2.1 Basophils (%) (Auto) 0.6 Neutrophils # (Auto) 4.4 Lymphocytes # (Auto) 1.4 Monocytes # (Auto) 0.9 Eosinophils # (Auto) 0.1 Basophils # (Auto) 0.0 CBC Comment DIFF FINAL Differential Comment Sodium Level 140 Potassium Level 3.7 Chloride Level 107 Carbon Dioxide Level 24.9 Anion Gap 8 Blood Urea Nitrogen 6 Creatinine 0.53 Estimat Glomerular Filtration 114 Rate Random Glucose 92 Calcium Level 7.0 Protein Corrected Calcium 7.9 Total Protein 5.4 Result Diagram: 07/20/16 0415 07/20/16 0415 Imaging Last Impressions Lower Extremity Angiography 07/19/16 1353 Signed Impressions: Service Date/Time: July 10:55 - CONCLUSION: 1. Contained rupture of the proximal superficial femoral artery following atherectomy. The patient is to go to the operating room for surgical repair. Godwin Abraham MD Assessment and Plan Problem List: (1) Atrial fibrillation Assessment and Plan: Post operative atrial fibrillation with RVR. Patient back in sinus rhythm. Continue family service caseworker, cont labetalol and avoid electrolyte imbalances. Thank you for the opportunity to take part on the care of this patient (2) Peripheral vascular disease Problem Qualifiers (1) Atrial fibrillation: Qualified Code: I48.91 - Atrial fibrillation, unspecified type Kody Rogers MD Jul 20, 2016 21:16
[2016-07-21] VITALS (7 sets, daily range): BP systolic 92–132; BP diastolic 41–71; PULSE 68–87; RESP 18–24; TEMP 97.6–99.7; O2SAT 93–99
[2016-07-21] MEDS: SODIUM CHLOR 0.9% 1000 ML INJ 1,000 ML IV SCH (09:28)
[2016-07-21] MEDS: LABETALOL HCL 300 MG TAB PO SCH ×2 (10:12→19:56)
[2016-07-21] MEDS: CLOPIDOGREL 75 MG TAB PO SCH (10:12)
[2016-07-21] MEDS: SODIUM CHLORIDE 0.9% FLUSH 5 ML FLUSH IVF SCH ×2 (10:12→19:56)
--- NOTE | 2016-07-21 10:27 | HHI.PR ---
Subjective Remarks f/u for medical issues. patient has no complaints. She continues to be in sinus rhythm. patient stated she is ambulating fine and has no complaints about pain. her nurse is at the bed side. Objective Vitals Vital Signs Date Time Temp Pulse Resp B/P Pulse Ox O2 Delivery O2 Flow Rate FiO2 07/21/16 07:45 98 Nasal Cannula 2.00 07/21/16 07:00 68 07/21/16 07:00 98 Nasal Cannula 2.00 07/21/16 07:00 99.1 68 20 121/62 98 07/21/16 03:00 77 07/21/16 03:00 96 Nasal Cannula 2.00 07/21/16 03:00 98.7 78 18 113/41 96 07/20/16 23:30 79 141/73 97 07/20/16 23:00 97 Nasal Cannula 2.00 07/20/16 23:00 77 07/20/16 23:00 100.0 78 18 150/73 97 07/20/16 22:02 96 Nasal Cannula 2.00 07/20/16 19:00 98.7 77 18 99/57 95 07/20/16 19:00 79 07/20/16 19:00 95 Nasal Cannula 2.00 07/20/16 15:00 85 07/20/16 15:00 98.8 92 18 82/50 98 Arterial Line 07/20/16 15:00 98 Nasal Cannula 2.00 07/20/16 11:00 98.2 120 18 98 103/77 07/20/16 11:00 98 Room Air 07/20/16 11:00 107 I/O 07/20/16 07/20/16 07/20/16 07/21/16 07/21/16 07/21/16 07:00 15:00 23:00 07:00 15:00 23:00 Intake Total 1504 ml 2750 ml 480 ml Output Total 1410 ml 1565 ml 755 ml Balance 94 ml 1185 ml -275 ml Intake Oral 430 ml 600 ml 480 ml IV Total 1074 ml 2150 ml 0 ml Output Urine Total 1300 ml 1475 ml 700 ml Drainage Total 110 ml 90 ml 55 ml # Bowel Movements 0 0 0 Result Diagram: 07/20/16 0415 07/20/165 Objective Remarks GENERAL: in NAD CARDIOVASCULAR: Regular rate and rhythm without murmurs, gallops, or rubs. RESPIRATORY: Breath sounds equal bilaterally. No accessory muscle use. GASTROINTESTINAL: Abdomen soft, non-tender, nondistended. SKIN: left groin with DEB in placed. LE B/L feet warm. faint B/L DP pulses. Medications and IVs Current Medications Sodium Chloride (NS 1000 ml Inj) 1,000 ml @ 100 mls/hr Q10H IV Last administered on 07/19/16 15:05; Start 07/19/16 at 07:45; Stop 07/20/16 at 17:17; Status DC Midazolam HCl (Versed Inj) 5 mg STK-MED ONCE .ROUTE Last administered on 10:45; Start 07/19/16 at 10:45; Stop 07/19/16 at 10:46; Status DC Fentanyl Citrate (fentaNYL INJ) 250 mcg STK-MED ONCE .ROUTE Last administered on 07/19/16 10:45; Start 07/19/16 at 10:45; Stop 07/19/16 at 10:46; Status DC Midazolam HCl (Versed Inj) 5 mg STK-MED ONCE .ROUTE Last administered on 11:43; Start 07/19/16 at 11:43; Stop 07/19/16 at 11:44; Status DC Fentanyl Citrate (fentaNYL INJ) 250 mcg STK-MED ONCE .ROUTE Last administered on 07/19/16 11:43; Start 07/19/16 at 11:43; Stop 07/19/16 at 11:44; Status DC Heparin Sodium (Porcine) 10539 units 10,000 units STK-MED ONCE .ROUTE Last administered on 07/19/16 11:46; Start 07/19/16 at 11:46; Stop 07/19/16 at 11:47; Status DC Sodium Chloride (NS 1000 ml Inj) 1,000 ml @ 100 mls/hr Q10H IV ; Start 07/19/16 at 13:25; Stop 07/19/16 at 23:24; Status DC Acetaminophen (Tylenol) 650 mg Q4H PRN PO PAIN SCALE 1 TO 10; Start 07/19/16 at 13:30 Oxycodone/ Acetaminophen (Percocet 5-325 Mg) 1 tab Q4H PRN PO Pain not relieved by Tylenol; Start 07/19/16 at 13:30 Heparin Sodium (Porcine) (Heparin Inj) 10,000 units STK-MED ONCE OTHER Last administered on 07/19/16 13:37; Start 07/19/16 at 13:37; Stop 07/19/16 at 13:38; Status DC Iodixanol (Visipaque 320 Inj) 100 ml STK-MED ONCE I-ARTERIAL Last administered on 07/19/16 13:49; Start 07/19/16 at 13:49; Stop 07/19/16 at 13:50; Status DC Cefazolin Sodium (Ancef Inj) 1,000 mg STK-MED ONCE IV Last administered on 13:26; Start 07/19/16 at 13:26; Stop 07/19/16 at 15:37; Status DC Midazolam HCl (Versed Inj) 2 mg STK-MED ONCE .ROUTE ; Start 07/19/16 at 17:27; Stop 07/19/16 at 17:28; Status DC Fentanyl Citrate 250 mcg 250 mcg STK-MED ONCE .ROUTE ; Start 07/19/16 at 17:27; Stop 07/19/16 at 17:28; Status DC Sodium Chloride (NS 1000 ml Inj) 1,000 ml @ 100 mls/hr Q10H IV Last administered on 07/20/16 14:51; Start 07/19/16 at 17:28 IV Flush (NS Flush) 2 ml UNSCH PRN IVF FLUSH AFTER USING IV ACCESS; Start at 17:30 IV Flush (NS Flush) 2 ml BID IVF Last administered on 07/21/16 10:12; Start at 21:00 Ondansetron HCl (Zofran Inj) 4 mg Q6H PRN IV NAUSEA OR VOMITING; Start 07/19/16 at 17:30 Pantoprazole Sodium 40 mg 40 mg Q24H PO Last administered on 07/20/16 17:43; Start 07/19/16 at 18:00 Clindamycin Phosphate/Sodium Chloride (Cleocin Inj/NS Inj) 54 ml @ 108 mls/hr Q8H IV Last administered on 07/20/16 09:33; Start 07/19/16 at 18:00; Stop 07/20 at 10:29; Status DC Miscellaneous Information (Post-op Orders (for Pharmacy)) STAT ONCE XX ; Start 07/19/16 at 17:30; Stop 07/19/16 at 17:48; Status DC Oxycodone/ Acetaminophen (Percocet 5-325 Mg) 1 tab Q4H PRN PO PAIN SCALE 3 TO 5 Last administered on 07/20/16 12:23; Start 07/19/16 at 17:30 Morphine Sulfate (Morphine Inj) 4 mg Q2H PRN IV 6-10; Start 07/19/16 at 17:30 Naloxone HCl (Narcan Inj) 0.4 mg UNSCH PRN IV SEE LABEL COMMENTS; Start at 17:30 Enoxaparin Sodium (Lovenox Inj) 40 mg Q24H SQ Last administered on 07/20/16 16 :08; Start 07/20/16 at 16:00 Clopidogrel Bisulfate (Plavix) 75 mg DAILY PO Last administered on 07/21/16 10 :12; Start 07/19/16 at 18:00 Acetaminophen (Ofirmev Inj) 1,000 mg STK-MED ONCE IV Last administered on 18:04; Start 07/19/16 at 18:04; Stop 07/19/16 at 18:05; Status DC Miscellaneous Information ALL NURSING DEPARTME... UNSCH PRN XX SEE LABEL COMMENTS; Start 07/19/16 at 18:30; Stop 07/20/16 at 18:29; Status DC Diltiazem HCl 25 mg 25 mg STK-MED ONCE .ROUTE Last administered on 07/20/16 11 :49; Start 07/20/16 at 11:47; Stop 07/20/16 at 11:48; Status DC Diltiazem HCl/ Sodium Chloride (Cardizem Inj/NS Inj) 125 ml @ 0 mls/hr TITRATE IV Last administered on 07/20/16 13:00; Start 07/20/16 at 11:45; Stop at 14:27; Status DC Labetalol HCl (Trandate) 300 mg Q12HR PO Last administered on 07/21/16 10:12; Start 07/20/16 at 12:00 Propofol (Diprivan 200 Mg/20 ml Inj) 200 mg STK-MED ONCE IV ; Start 07/19/16 at 12:00; Stop 07/20/16 at 12:44; Status DC Ephedrine Sulfate (ePHEDrine/NS 25 MG/5 ML SYR) 25 mg STK-MED ONCE IV ; Start at 12:00; Stop 07/20/16 at 12:44; Status DC Ondansetron HCl 4 mg 4 mg STK-MED ONCE IV PUSH ; Start 07/19/16 at 12:00; Stop at 12:44; Status DC Lactated Ringer's 1,000 ml @ As Directed STK-MED ONCE IV ; Start 07/19/16 at 12: 00; Stop 07/20/16 at 12:44; Status DC Sodium Chloride 250 ml @ As Directed STK-MED ONCE IV ; Start 07/19/16 at 12:00; Stop 07/20/16 at 12:44; Status DC Sodium Chloride 500 ml @ As Directed STK-MED ONCE IV ; Start 07/19/16 at 12:00; Stop 07/20/16 at 12:44; Status DC Parenteral Electrolytes (Normosol R Inj) 4,000 ml @ As Directed STK-MED ONCE IV ; Start 07/19/16 at 12:00; Stop 07/20/16 at 12:44; Status DC Neostigmine Methylsulfate (Prostigmin Inj) 2 mg STK-MED ONCE IV ; Start 07/19/16 at 12:00; Stop 07/20/16 at 12:44; Status DC Phenylephrine HCl (Neosynephrine/ NS 1000 Mcg/10ml Syr) 1,000 mcg STK-MED ONCE IV ; Start 07/19/16 at 12:00; Stop 07/20/16 at 12:44; Status DC Heparin Sodium (Porcine) 41689 units 30,000 units STK-MED ONCE OTHER ; Start 07/19/16 at 12:00; Stop 07/20/16 at 12:50; Status DC Sodium Chloride (NS 500 ml Inj) 500 ml @ 0 mls/hr Q0M IV ; Start 07/20/16 at 14: 30; Stop 07/20/16 at 14:31; Status DC A/P Assessment and Plan 71 y/o with sever PVD severe PVD -s/p left atherectomy with vessel perforation; femoral bypass graft on 3/10/17 -being managed by vascular. Brief episode of atrial fibrillation -due to post op. -stable and continues to be in sinus rhythm. -tile finisher consulted and said to continues to current regimen. HTN -continue home medication. DVT prophylaxis -lovenox Discharge Planning patient can be downgraded to med/surg with telemetry. Rosalba Foss MD Jul 21, 2016 10:27
[2016-07-21] MEDS ORDERED: LACTULOSE SYRUP 20 GM/30 ML CUP PO ONE (17:00)
[2016-07-21] MEDS ORDERED: BISACODYL 10 MG SUPP RECTAL PRN (17:00)
[2016-07-21] MEDS: PANTOPRAZOLE SOD 40 MG DELAYED RELEASE TAB PO SCH (17:37)
[2016-07-21] MEDS: ENOXAPARIN SODIUM 40 MG/0.4 ML SYRINGE SQ SCH (17:38)
[2016-07-21] MEDS: ACETAMINOPHEN 325 MG TAB PO PRN (19:58)
[2016-07-22] VITALS (7 sets, daily range): BP systolic 98–167; BP diastolic 56–91; PULSE 73–85; RESP 18–21; TEMP 97.5–98.8; O2SAT 94–97
[2016-07-22] MEDS: SODIUM CHLORIDE 0.9% FLUSH 5 ML FLUSH IVF SCH ×2 (10:24→19:52)
[2016-07-22] MEDS: CLOPIDOGREL 75 MG TAB PO SCH (10:24)
[2016-07-22] MEDS: LABETALOL HCL 300 MG TAB PO SCH ×2 (10:24→19:51)
[2016-07-22] MEDS: ACETAMINOPHEN 325 MG TAB PO PRN ×2 (10:38→19:51)
--- NOTE | 2016-07-22 12:26 | HHI.PR ---
Subjective Remarks f/u for post op atrial fibrillation and leg pain. patient stated she is doing better. She stated she does have pain with ambulating but that has improved a lot. She continues to be in sinus rhythm. Denied any CP, palpitations, lightheadedness/ dizziness. Objective Vitals Vital Signs Date Time Temp Pulse Resp B/P Pulse Ox O2 Delivery O2 Flow Rate FiO2 07/22/16 11:07 73 07/22/16 07:33 98.5 85 18 129/91 96 07/22/16 04:25 98.2 78 21 134/74 97 07/22/16 00:12 97.8 74 21 132/78 97 07/21/16 20:00 99.7 82 20 112/58 95 07/21/16 16:00 99.1 77 18 129/67 93 07/21/16 13:42 99.3 87 18 132/71 96 I/O 07/21/16 07/21/16 07/21/16 07/22/16 07/22/16 07/22/16 07:00 15:00 23:00 07:00 15:00 23:00 Intake Total 480 ml 1460 ml 360 ml 480 ml Output Total 755 ml 470 ml Balance -275 ml 990 ml 360 ml 480 ml Intake Oral 480 ml 1460 ml 360 ml 480 ml IV Total 0 ml 0 ml Output Urine Total 700 ml 400 ml Drainage Total 55 ml 70 ml # Voids 1 1 2 # Bowel Movements 0 0 0 2 Result Diagram: 07/20/165 07/20/16414 Objective Remarks GENERAL: in NAD CARDIOVASCULAR: Regular rate and rhythm without murmurs, gallops, or rubs. RESPIRATORY: Breath sounds equal bilaterally. No accessory muscle use. GASTROINTESTINAL: Abdomen soft, non-tender, nondistended. SKIN: left groin with DEB in placed. LE B/L feet warm. faint B/L DP pulses. Medications and IVs Current Medications Sodium Chloride (NS 1000 ml Inj) 1,000 ml @ 100 mls/hr Q10H IV Last administered on 07/19/16 15:05; Start 07/19/16 at 07:45; Stop 07/20/16 at 17:17; Status DC Midazolam HCl (Versed Inj) 5 mg STK-MED ONCE .ROUTE Last administered on 10:45; Start 07/19/16 at 10:45; Stop 07/19/16 at 10:46; Status DC Fentanyl Citrate (fentaNYL INJ) 250 mcg STK-MED ONCE .ROUTE Last administered on 07/19/16 10:45; Start 07/19/16 at 10:45; Stop 07/19/16 at 10:46; Status DC Midazolam HCl (Versed Inj) 5 mg STK-MED ONCE .ROUTE Last administered on 11:43; Start 07/19/16 at 11:43; Stop 07/19/16 at 11:44; Status DC Fentanyl Citrate (fentaNYL INJ) 250 mcg STK-MED ONCE .ROUTE Last administered on 07/19/16 11:43; Start 07/19/16 at 11:43; Stop 07/19/16 at 11:44; Status DC Heparin Sodium (Porcine) 21233 units 10,000 units STK-MED ONCE .ROUTE Last administered on 07/19/16 11:46; Start 07/19/16 at 11:46; Stop 07/19/16 at 11:47; Status DC Sodium Chloride (NS 1000 ml Inj) 1,000 ml @ 100 mls/hr Q10H IV ; Start 07/19/16 at 13:25; Stop 07/19/16 at 23:24; Status DC Acetaminophen (Tylenol) 650 mg Q4H PRN PO PAIN SCALE 1 TO 10 Last administered on 07/22/16 10:38; Start 07/19/16 at 13:30 Oxycodone/ Acetaminophen (Percocet 5-325 Mg) 1 tab Q4H PRN PO Pain not relieved by Tylenol; Start 07/19/16 at 13:30 Heparin Sodium (Porcine) (Heparin Inj) 10,000 units STK-MED ONCE OTHER Last administered on 07/19/16 13:37; Start 07/19/16 at 13:37; Stop 07/19/16 at 13:38; Status DC Iodixanol (Visipaque 320 Inj) 100 ml STK-MED ONCE I-ARTERIAL Last administered on 07/19/16 13:49; Start 07/19/16 at 13:49; Stop 07/19/16 at 13:50; Status DC Cefazolin Sodium (Ancef Inj) 1,000 mg STK-MED ONCE IV Last administered on 13:26; Start 07/19/16 at 13:26; Stop 07/19/16 at 15:37; Status DC Midazolam HCl (Versed Inj) 2 mg STK-MED ONCE .ROUTE ; Start 07/19/16 at 17:27; Stop 07/19/16 at 17:28; Status DC Fentanyl Citrate 250 mcg 250 mcg STK-MED ONCE .ROUTE ; Start 07/19/16 at 17:27; Stop 07/19/16 at 17:28; Status DC Sodium Chloride (NS 1000 ml Inj) 1,000 ml @ 100 mls/hr Q10H IV Last administered on 07/20/16 14:51; Start 07/19/16 at 17:28 IV Flush (NS Flush) 2 ml UNSCH PRN IVF FLUSH AFTER USING IV ACCESS; Start at 17:30 IV Flush (NS Flush) 2 ml BID IVF Last administered on 07/22/16 10:24; Start at 21:00 Ondansetron HCl (Zofran Inj) 4 mg Q6H PRN IV NAUSEA OR VOMITING; Start 07/19/16 at 17:30 Pantoprazole Sodium 40 mg 40 mg Q24H PO Last administered on 07/21/16 17:37; Start 07/19/16 at 18:00 Clindamycin Phosphate/Sodium Chloride (Cleocin Inj/NS Inj) 54 ml @ 108 mls/hr Q8H IV Last administered on 07/20/16 09:33; Start 07/19/16 at 18:00; Stop 07/20 at 10:29; Status DC Miscellaneous Information (Post-op Orders (for Pharmacy)) STAT ONCE XX ; Start 07/19/16 at 17:30; Stop 07/19/16 at 17:48; Status DC Oxycodone/ Acetaminophen (Percocet 5-325 Mg) 1 tab Q4H PRN PO PAIN SCALE 3 TO 5 Last administered on 07/20/16 12:23; Start 07/19/16 at 17:30 Morphine Sulfate (Morphine Inj) 4 mg Q2H PRN IV 6-10; Start 07/19/16 at 17:30 Naloxone HCl (Narcan Inj) 0.4 mg UNSCH PRN IV SEE LABEL COMMENTS; Start at 17:30 Enoxaparin Sodium (Lovenox Inj) 40 mg Q24H SQ Last administered on 07/21/16 17 :38; Start 07/20/16 at 16:00 Clopidogrel Bisulfate (Plavix) 75 mg DAILY PO Last administered on 07/22/16 10 :24; Start 07/19/16 at 18:00 Acetaminophen (Ofirmev Inj) 1,000 mg STK-MED ONCE IV Last administered on 18:04; Start 07/19/16 at 18:04; Stop 07/19/16 at 18:05; Status DC Miscellaneous Information ALL NURSING DEPARTME... UNSCH PRN XX SEE LABEL COMMENTS; Start 07/19/16 at 18:30; Stop 07/20/16 at 18:29; Status DC Diltiazem HCl 25 mg 25 mg STK-MED ONCE .ROUTE Last administered on 07/20/16 11 :49; Start 07/20/16 at 11:47; Stop 07/20/16 at 11:48; Status DC Diltiazem HCl/ Sodium Chloride (Cardizem Inj/NS Inj) 125 ml @ 0 mls/hr TITRATE IV Last administered on 07/20/16 13:00; Start 07/20/16 at 11:45; Stop at 14:27; Status DC Labetalol HCl (Trandate) 300 mg Q12HR PO Last administered on 07/22/16 10:24; Start 07/20/16 at 12:00 Propofol (Diprivan 200 Mg/20 ml Inj) 200 mg STK-MED ONCE IV ; Start 07/19/16 at 12:00; Stop 07/20/16 at 12:44; Status DC Ephedrine Sulfate (ePHEDrine/NS 25 MG/5 ML SYR) 25 mg STK-MED ONCE IV ; Start at 12:00; Stop 07/20/16 at 12:44; Status DC Ondansetron HCl 4 mg 4 mg STK-MED ONCE IV PUSH ; Start 07/19/16 at 12:00; Stop at 12:44; Status DC Lactated Ringer's 1,000 ml @ As Directed STK-MED ONCE IV ; Start 07/19/16 at 12: 00; Stop 07/20/16 at 12:44; Status DC Sodium Chloride 250 ml @ As Directed STK-MED ONCE IV ; Start 07/19/16 at 12:00; Stop 07/20/16 at 12:44; Status DC Sodium Chloride 500 ml @ As Directed STK-MED ONCE IV ; Start 07/19/16 at 12:00; Stop 07/20/16 at 12:44; Status DC Parenteral Electrolytes (Normosol R Inj) 4,000 ml @ As Directed STK-MED ONCE IV ; Start 07/19/16 at 12:00; Stop 07/20/16 at 12:44; Status DC Neostigmine Methylsulfate (Prostigmin Inj) 2 mg STK-MED ONCE IV ; Start 07/19/16 at 12:00; Stop 07/20/16 at 12:44; Status DC Phenylephrine HCl (Neosynephrine/ NS 1000 Mcg/10ml Syr) 1,000 mcg STK-MED ONCE IV ; Start 07/19/16 at 12:00; Stop 07/20/16 at 12:44; Status DC Heparin Sodium (Porcine) 10634 units 30,000 units STK-MED ONCE OTHER ; Start 07/19/16 at 12:00; Stop 07/20/16 at 12:50; Status DC Sodium Chloride (NS 500 ml Inj) 500 ml @ 0 mls/hr Q0M IV ; Start 07/20/16 at 14: 30; Stop 07/20/16 at 14:31; Status DC Lactulose (Lactulose Liq) 30 ml ONCE ONCE PO Last administered on 07/21/16t 17 :37; Start 07/21/16 at 17:00; Stop 07/21/16 at 17:01; Status DC Bisacodyl (Dulcolax Supp) 10 mg DAILY PRN RECTAL CONSTIPATION; Start 07/21/16 at 17:00 A/P Assessment and Plan 71 y/o with sever PVD severe PVD -s/p left atherectomy with vessel perforation; femoral bypass graft on 07/20/16 -being managed by vascular. Brief episode of atrial fibrillation -due to post op. -stable and continues to be in sinus rhythm. -information assurance manager consulted and said to continues to current regimen. HTN -continue home medication. Hypocalcemia -mildly decrease. -add TUMS. DVT prophylaxis -lovenox Discharge Planning patient is medically cleared to be discharge. Will f/u if needed. Rosalba Foss MD Jul 22, 2016 12:26
[2016-07-22] MEDS: ENOXAPARIN SODIUM 40 MG/0.4 ML SYRINGE SQ SCH (14:36)
[2016-07-22] MEDS: CALCIUM CARBONATE 500 MG CHEWABLE TAB CHEW SCH ×2 (14:36→19:52)
[2016-07-22] MEDS: SODIUM CHLOR 0.9% 1000 ML INJ 1,000 ML IV SCH (15:28)
[2016-07-22] MEDS: PANTOPRAZOLE SOD 40 MG DELAYED RELEASE TAB PO SCH (18:35)
[2016-07-23] VITALS (8 sets, daily range): BP systolic 135–205; BP diastolic 67–86; PULSE 69–80; RESP 16–20; TEMP 96.7–98.5; O2SAT 95–98
[2016-07-23] MEDS: ACETAMINOPHEN 325 MG TAB PO PRN ×2 (05:54→15:19)
[2016-07-23] MEDS: SODIUM CHLORIDE 0.9% FLUSH 5 ML FLUSH IVF SCH ×2 (08:02→21:04)
[2016-07-23] MEDS: CALCIUM CARBONATE 500 MG CHEWABLE TAB CHEW SCH ×2 (08:02→21:04)
[2016-07-23] MEDS: LABETALOL HCL 300 MG TAB PO SCH ×2 (08:02→21:04)
[2016-07-23] MEDS: CLOPIDOGREL 75 MG TAB PO SCH (08:03)
[2016-07-23] MEDS ORDERED: ENALAPRILAT 1.25 MG/ML VIAL IV PUSH PRN (08:45)
[2016-07-23 09:13] LABS: HEMATOCRIT 29.1 % (35.0-46.0); MEAN CELL VOLUME 94.9 FL (80.0-100.0); MEAN CORPUSCULAR HEMOGLOBIN 33.2 PG (27.0-34.0); MEAN CORPUSCULAR HGB CONC 34.9 % (32.0-36.0); PLATELET COUNT 149 TH/MM3 (150-450); RED BLOOD COUNT 3.07 MIL/MM3 (4.00-5.30); REVIEW FLAG FINAL; WHITE BLOOD COUNT 3.8 TH/MM3 (4.0-11.0)
[2016-07-23 09:28] LABS: ANION GAP 8 MEQ/L (5-15); AST (GOT) 39 U/L (15-37); BICARBONATE 27.2 MEQ/L (21.0-32.0); BLOOD UREA NITROGEN 5 MG/DL (7-18); CHLORIDE 105 MEQ/L (98-107); GLOMERULAR FILTRATION RATE 84 ML/MIN (>89); POTASSIUM 3.2 MEQ/L (3.5-5.1); SODIUM (NA) 140 MEQ/L (136-145)
[2016-07-23 09:33] LABS: ALKALINE PHOSPHATASE 48 U/L (45-117); ALT (GPT) 49 U/L (10-53); TOTAL BILIRUBIN ADULT 0.6 MG/DL (0.2-1.0)
[2016-07-23] MEDS: SODIUM CHLOR 0.9% 1000 ML INJ 1,000 ML IV SCH (11:28)
--- NOTE | 2016-07-23 11:40 | MP ---
cc: GAYLA MULLIGAN MD DATE OF SURGERY 07/19/2016 PREOPERATIVE DIAGNOSES 1. Iatrogenic laceration, disruption of the left common femoral, external iliac and superficial femoral arteries, hemorrhage into the left groin. 2. Peripheral vascular disease. POSTOPERATIVE DIAGNOSES 1. Iatrogenic laceration, disruption of the left common femoral, external iliac and superficial femoral arteries, hemorrhage into the left groin. 2. Peripheral vascular disease. OPERATIVE PROCEDURE Left external iliac common femoral SFA isolation resection and then external iliac to superficial femoral artery bypass with 8-mm Rock-Urban graft and reimplantation of the deep femoral artery into the graft. SURGEON MD Summer ANESTHESIA General. ESTIMATED BLOOD LOSS 900 cc. INDICATIONS FOR PROCEDURE This 71-year-old female apparently underwent in interventional radiology endovascular atherectomy and during the procedure extravasation of contrast was noted and I was called to in to consult. It was obvious that the patient has a tear of the artery and decision was made take the patient to the operating room. PROCEDURE The patient is prepped and draped in the usual fashion and the left groin is opened in oblique fashion extending the incision upwards to be able to expose the retroperitoneal space in order to gain control. This was deepened down to Nolan's fascia and then through the deep fascial layers into the neurovascular sheath. There was a huge hematoma there and finger control was held of this area to prevent bleeding. The upper arm Gis Software Engineer retractor is placed and retroperitoneum is exposed allowing for control of the external iliac artery. The external iliac artery is controlled now as it enters the groin about 1-1/2 inches above the inguinal ligament. The patient is given 5000 units of heparin and Satinsky clamp is applied to the external iliac artery hereby controlling the inflow easily. Now, very carefully the common femoral and superficial femoral arteries are isolated. It is noted that the patient has superficial femoral artery which is intact about 5 inches downward distally as it exits the groin into the thigh. The superficial femoral artery is isolated in this area and bulldog placed on it. Between the distal external iliac and superficial femoral artery, the common distal external iliac, common femoral and proximal superficial femoral artery are completely destroyed by the Hawk device which essentially sliced the front of the vessel off. What is left is about 6 mm of the back of the vessel. The deep femoral artery is torn off and, while there was circulation in it through the hematoma, now there is none. The bulldog is now placed on the deep femoral artery and then the area is irrigated with saline. Now that we have control of all the vessels, it is clear that the patient has non-reconstructable disease as far as saving any of the superficial femoral or common femoral arteries in the groin. Therefore the plaque that is there is removed. This gives us a nice soft bed. An 8-mm PTFE graft is now chosen. The patient has small saphenous vein that would not suffice. The distal external iliac artery is now cut under a slightly oblique angle to allow for more of a spatulated end-to-end anastomosis and the same is done with the Rock-Urban graft; one is sewn to the other, end-to-end with a running 6-0 Prolene. Once this was completed, the Satinsky clamp is placed on the graft and vessel is released. There is a bounding pulse here. Now the distal anastomosis superficial femoral artery is attended. The SFA is about 6.5 mm while the graft is about 8 and the difference is accommodated by a small slit in the vessel, then the distal anastomosis is accomplished with a running 6-0 Prolene. When both anastomoses are completed, blood flow is reestablished. Prior to completion of the anastomosis; however, a red Alexander is passed down the SFA distally and goes easily all the way down to the ankle by measuring the length. No clot is withdrawn. The vessel is now flushed with copious amounts of heparinized saline, then the anastomosis is completed. Blood flow is now reestablished. The deep femoral artery is now attended. Again a profunda clamp is placed on the graft proximally and distally and the graft is now cut in a triangular fashion laterally to mimic the takeoff of the deep femoral artery. The femoral artery is also cleaned out. A small Alexander is placed distally. This one is normal and patent. The artery is now flushed with heparinized saline. There is excellent backbleeding. The deep femoral artery is now slit for about a length of 4 mm with Bauer scissors which allows for spatulation. It is sewn in end-to-side onto the graft with running 6-0 Prolene, then blood flow was reestablished. Now the pulse is checked with Doppler. The patient has a bounding palpable and dopplerable brisk pulse in the graft, in the distal SFA as well as the profunda arteries . The area is irrigated with copious amounts of saline and some FloSeal is placed over the anastomosis. Meticulous hemostasis in the groin achieved, a 7 flat DEB laid in the area and then incisions closed in layers, fascia to fascia and superficial fascia to superficial fascia with 0 running Vicryl and then the skin is closed with 4-0 subcuticular Monocryl. The patient tolerated procedure well. At the end of the procedure the patient has a very strong posterior tibial and somewhat weakened dorsalis pedis pulse but she is cold and vasoconstricted. The patient is taken out of the operating room in stable condition and capillary refill is intact. Gayla AYALA/VAMSI /11:57 PM /10:10 AM
[2016-07-23] MEDS ORDERED: POTASSIUM CHLORIDE 10 MEQ CONTROLLED RELEASE TAB PO ONE (12:30)
[2016-07-23] MEDS ORDERED: [UNRECOGNIZED DRUG - OTHER] PO SCH (13:15)
[2016-07-23] MEDS: ENOXAPARIN SODIUM 40 MG/0.4 ML SYRINGE SQ SCH (15:17)
[2016-07-23] MEDS: amLODIPine BESYLATE 5 MG TAB PO SCH (15:17)
[2016-07-23] MEDS: VALSARTAN 160 MG TAB PO SCH (15:18)
[2016-07-23] MEDS: HYDROCHLOROTHIAZIDE 12.5 MG CAP PO SCH (15:18)
--- NOTE | 2016-07-23 15:43 | HHI.PR ---
Subjective Remarks f/u for PVD patient stated left leg more swollen. he blood pressure was elevated in AM and had been labile today. she denied any pain or anxiety. patient also stated she had nose bleed that was light dripping bleed lasting for about 5 minutes. She stated she is prone to nose bleed. Patient stated that sensation in leg is the same. Denied any pain with ambulation. Objective Vitals Vital Signs Date Time Temp Pulse Resp B/P Pulse Ox O2 Delivery O2 Flow Rate FiO2 07/23/16 13:21 75 07/23/16 11:53 96.7 69 16 174/77 97 07/23/16 09:16 137/67 07/23/16 07:41 97.3 75 16 205/86 95 07/23/16 07:15 Room Air 07/23/16 04:00 97.0 76 20 175/82 98 07/23/16 00:00 98.0 80 20 155/71 96 07/22/16 20:00 98.0 74 20 167/77 97 07/22/16 15:50 97.5 74 18 124/65 97 I/O 07/22/16 07/22/16 07/22/16 07/23/16 07/23/16 07/23/16 07:00 15:00 23:00 07:00 15:00 23:00 Intake Total 480 ml 960 ml Output Total 70 ml 40 ml 35 ml Balance 480 ml 890 ml -40 ml -35 ml Intake Oral 480 ml 960 ml Drainage Total 70 ml 40 ml 35 ml # Voids 2 3 # Bowel Movements 2 2 Result Diagram: 07/23/16 0901 07/23/16 0901 Objective Remarks GENERAL: in NAD CARDIOVASCULAR: Regular rate and rhythm without murmurs, gallops, or rubs. RESPIRATORY: Breath sounds equal bilaterally. No accessory muscle use. GASTROINTESTINAL: Abdomen soft, non-tender, nondistended. SKIN: left groin with DEB in placed. LE B/L feet warm. faint B/L DP pulses. + increase swelling in left leg. Medications and IVs Current Medications Sodium Chloride (NS 1000 ml Inj) 1,000 ml @ 100 mls/hr Q10H IV Last administered on 07/19/16t 15:05; Start 07/19/16 at 07:45; Stop 07/20/16 at 17:17; Status DC Midazolam HCl (Versed Inj) 5 mg STK-MED ONCE .ROUTE Last administered on 10:45; Start 07/19/16 at 10:45; Stop 07/19/16 at 10:46; Status DC Fentanyl Citrate (fentaNYL INJ) 250 mcg STK-MED ONCE .ROUTE Last administered on 07/19/16 10:45; Start 07/19/16 at 10:45; Stop 07/19/16 at 10:46; Status DC Midazolam HCl (Versed Inj) 5 mg STK-MED ONCE .ROUTE Last administered on 11:43; Start 07/19/16 at 11:43; Stop 07/19/16 at 11:44; Status DC Fentanyl Citrate (fentaNYL INJ) 250 mcg STK-MED ONCE .ROUTE Last administered on 07/19/16 11:43; Start 07/19/16 at 11:43; Stop 07/19/16 at 11:44; Status DC Heparin Sodium (Porcine) 69802 units 10,000 units STK-MED ONCE .ROUTE Last administered on 07/19/16 11:46; Start 07/19/16 at 11:46; Stop 07/19/16 at 11:47; Status DC Sodium Chloride (NS 1000 ml Inj) 1,000 ml @ 100 mls/hr Q10H IV ; Start 07/19/16 at 13:25; Stop 07/19/16 at 23:24; Status DC Acetaminophen (Tylenol) 650 mg Q4H PRN PO PAIN SCALE 1 TO 10 Last administered on 07/23/16 15:19; Start 07/19/16 at 13:30 Oxycodone/ Acetaminophen (Percocet 5-325 Mg) 1 tab Q4H PRN PO Pain not relieved by Tylenol; Start 07/19/16 at 13:30 Heparin Sodium (Porcine) (Heparin Inj) 10,000 units STK-MED ONCE OTHER Last administered on 07/19/16 13:37; Start 07/19/16 at 13:37; Stop 07/19/16 at 13:38; Status DC Iodixanol (Visipaque 320 Inj) 100 ml STK-MED ONCE I-ARTERIAL Last administered on 07/19/16 13:49; Start 07/19/16 at 13:49; Stop 07/19/16 at 13:50; Status DC Cefazolin Sodium (Ancef Inj) 1,000 mg STK-MED ONCE IV Last administered on 13:26; Start 07/19/16 at 13:26; Stop 07/19/16 at 15:37; Status DC Midazolam HCl (Versed Inj) 2 mg STK-MED ONCE .ROUTE ; Start 07/19/16 at 17:27; Stop 07/19/16 at 17:28; Status DC Fentanyl Citrate 250 mcg 250 mcg STK-MED ONCE .ROUTE ; Start 07/19/16 at 17:27; Stop 07/19/16 at 17:28; Status DC Sodium Chloride (NS 1000 ml Inj) 1,000 ml @ 100 mls/hr Q10H IV Last administered on 07/20/16 14:51; Start 07/19/16 at 17:28 IV Flush (NS Flush) 2 ml UNSCH PRN IVF FLUSH AFTER USING IV ACCESS; Start at 17:30 IV Flush (NS Flush) 2 ml BID IVF Last administered on 07/23/16 08:02; Start at 21:00 Ondansetron HCl (Zofran Inj) 4 mg Q6H PRN IV NAUSEA OR VOMITING; Start 07/19/16 at 17:30 Pantoprazole Sodium 40 mg 40 mg Q24H PO Last administered on 07/22/16 18:35; Start 07/19/16 at 18:00 Clindamycin Phosphate/Sodium Chloride (Cleocin Inj/NS Inj) 54 ml @ 108 mls/hr Q8H IV Last administered on 07/20/16 09:33; Start 07/19/16 at 18:00; Stop 07/20 at 10:29; Status DC Miscellaneous Information (Post-op Orders (for Pharmacy)) STAT ONCE XX ; Start 07/19/16 at 17:30; Stop 07/19/16 at 17:48; Status DC Oxycodone/ Acetaminophen (Percocet 5-325 Mg) 1 tab Q4H PRN PO PAIN SCALE 3 TO 5 Last administered on 07/20/16 12:23; Start 07/19/16 at 17:30 Morphine Sulfate (Morphine Inj) 4 mg Q2H PRN IV 6-10; Start 07/19/16 at 17:30 Naloxone HCl (Narcan Inj) 0.4 mg UNSCH PRN IV SEE LABEL COMMENTS; Start at 17:30 Enoxaparin Sodium (Lovenox Inj) 40 mg Q24H SQ Last administered on 07/23/16 15 :17; Start 07/20/16 at 16:00 Clopidogrel Bisulfate (Plavix) 75 mg DAILY PO Last administered on 07/23/16 08 :03; Start 07/19/16 at 18:00 Acetaminophen (Ofirmev Inj) 1,000 mg STK-MED ONCE IV Last administered on 18:04; Start 07/19/16 at 18:04; Stop 07/19/16 at 18:05; Status DC Miscellaneous Information ALL NURSING DEPARTME... UNSCH PRN XX SEE LABEL COMMENTS; Start 07/19/16 at 18:30; Stop 07/20/16 at 18:29; Status DC Diltiazem HCl 25 mg 25 mg STK-MED ONCE .ROUTE Last administered on 07/20/16 11 :49; Start 07/20/16 at 11:47; Stop 07/20/16 at 11:48; Status DC Diltiazem HCl/ Sodium Chloride (Cardizem Inj/NS Inj) 125 ml @ 0 mls/hr TITRATE IV Last administered on 07/20/16 13:00; Start 07/20/16 at 11:45; Stop at 14:27; Status DC Labetalol HCl (Trandate) 300 mg Q12HR PO Last administered on 07/23/16 08:02; Start 07/20/16 at 12:00 Propofol (Diprivan 200 Mg/20 ml Inj) 200 mg STK-MED ONCE IV ; Start 07/19/16 at 12:00; Stop 07/20/16 at 12:44; Status DC Ephedrine Sulfate (ePHEDrine/NS 25 MG/5 ML SYR) 25 mg STK-MED ONCE IV ; Start at 12:00; Stop 07/20/16 at 12:44; Status DC Ondansetron HCl 4 mg 4 mg STK-MED ONCE IV PUSH ; Start 07/19/16 at 12:00; Stop at 12:44; Status DC Lactated Ringer's 1,000 ml @ As Directed STK-MED ONCE IV ; Start 07/19/16 at 12: 00; Stop 07/20/16 at 12:44; Status DC Sodium Chloride 250 ml @ As Directed STK-MED ONCE IV ; Start 07/19/16 at 12:00; Stop 07/20/16 at 12:44; Status DC Sodium Chloride 500 ml @ As Directed STK-MED ONCE IV ; Start 07/19/16 at 12:00; Stop 07/20/16 at 12:44; Status DC Parenteral Electrolytes (Normosol R Inj) 4,000 ml @ As Directed STK-MED ONCE IV ; Start 07/19/16 at 12:00; Stop 07/20/16 at 12:44; Status DC Neostigmine Methylsulfate (Prostigmin Inj) 2 mg STK-MED ONCE IV ; Start 07/19/16 at 12:00; Stop 07/20/16 at 12:44; Status DC Phenylephrine HCl (Neosynephrine/ NS 1000 Mcg/10ml Syr) 1,000 mcg STK-MED ONCE IV ; Start 07/19/16 at 12:00; Stop 07/20/16 at 12:44; Status DC Heparin Sodium (Porcine) 20986 units 30,000 units STK-MED ONCE OTHER ; Start 07/19/16 at 12:00; Stop 07/20/16 at 12:50; Status DC Sodium Chloride (NS 500 ml Inj) 500 ml @ 0 mls/hr Q0M IV ; Start 07/20/16 at 14: 30; Stop 07/20/16 at 14:31; Status DC Lactulose (Lactulose Liq) 30 ml ONCE ONCE PO Last administered on 07/21/16t 17 :37; Start 07/21/16 at 17:00; Stop 07/21/16 at 17:01; Status DC Bisacodyl (Dulcolax Supp) 10 mg DAILY PRN RECTAL CONSTIPATION; Start 07/21/16 at 17:00 Calcium Carbonate (Tums Chew) 500 mg Q12HR CHEW Last administered on 07/23/16 08:02; Start 07/22/16 at 13:00 Enalaprilat (Vasotec Inj) 1.25 mg Q6H PRN IV PUSH SBP> OR = 180, DBP> OR = 100 ; Start 07/23/16 at 08:45 Potassium Chloride (KCl) 30 meq ONCE ONCE PO Last administered on 07/23/16 13 :18; Start 07/23/16 at 12:30; Stop 07/23/16 at 12:41; Status DC Non-Formulary Medication 1 tab DAILY PO BPM; Start 07/23/16 at 13:15; Status UNV Amlodipine Besylate (Norvasc) 5 mg DAILY PO Last administered on 07/23/16 15: 17; Start 07/23/16 at 13:30 Valsartan (Diovan) 160 mg DAILY PO Last administered on 07/23/16 15:18; Start 07/23/16 at 13:30 Hydrochlorothiazide (Microzide) 12.5 mg DAILY PO Last administered on 15:18; Start 07/23/16 at 13:30 A/P Assessment and Plan 71 y/o with sever PVD severe PVD -s/p left atherectomy with vessel perforation; femoral bypass graft on 07/20/16 -being managed by vascular. -there is increase in swelling but pulses and warmth is the same. being managed by vascular surgeon. per nurse he was notified in AM. Brief episode of atrial fibrillation -due to post op. -stable and continues to be in sinus rhythm. -baling machine operator consulted and said to continues to current regimen. HTN -uncontrolled today. -restart home medication. Hypocalcemia -mildly decrease. -add TUMS. DVT prophylaxis -lovenox Discharge Planning home medication restarted continue to monitor. leg swelling of left leg to be managed by vascular surgeon. Rosalba Foss MD Jul 23, 2016 15:43
[2016-07-23] MEDS: PANTOPRAZOLE SOD 40 MG DELAYED RELEASE TAB PO SCH (17:20)
[2016-07-24] VITALS: BP 167/77; PULSE 80; RESP 17; TEMP 98.7; O2SAT 96
[2016-07-24 04:00] VITALS: BP 161/93; PULSE 88; RESP 16; TEMP 97.6; O2SAT 95
[2016-07-24 08:00] VITALS: BP 175/77; PULSE 81; RESP 20; TEMP 98.1; O2SAT 94
[2016-07-24] MEDS: CALCIUM CARBONATE 500 MG CHEWABLE TAB CHEW SCH (09:50)
[2016-07-24] MEDS: CLOPIDOGREL 75 MG TAB PO SCH (09:50)
[2016-07-24] MEDS: amLODIPine BESYLATE 5 MG TAB PO SCH (09:50)
[2016-07-24] MEDS: VALSARTAN 160 MG TAB PO SCH (09:50)
[2016-07-24] MEDS: HYDROCHLOROTHIAZIDE 12.5 MG CAP PO SCH (09:51)
[2016-07-24] MEDS: LABETALOL HCL 300 MG TAB PO SCH (09:51)
[2016-07-24] MEDS: SODIUM CHLORIDE 0.9% FLUSH 5 ML FLUSH IVF SCH (09:51)
[2016-07-24 09:54] VITALS: PULSE 85
[2016-07-24 11:54] VITALS: BP 102/48; PULSE 74; RESP 20; TEMP 98.7; O2SAT 94
--- NOTE | 2016-07-24 12:14 | HHI.PR ---
Subjective Remarks f/u for elevated BP. patient is anxious to leave and stated Dr. Alejo stated she can leave depending on me. DEB drained removed last night. She stated pain is controlled and swelling has improved. Denied any CP, SOB, palpitations, lightheadness/dizziness. Objective Vitals Vital Signs Date Time Temp Pulse Resp B/P Pulse Ox O2 Delivery O2 Flow Rate FiO2 07/24/16 11:54 98.7 74 20 102/48 94 07/24/16 09:54 85 07/24/16 08:00 98.1 81 20 175/77 94 07/24/16 04:00 97.6 88 16 161/93 95 07/24/16 00:00 98.7 80 17 167/77 96 07/23/16 20:00 98.5 78 18 135/73 95 07/23/16 20:00 95 Room Air 07/23/16 20:00 72 07/23/16 15:43 97.1 75 16 192/86 97 07/23/16 13:21 75 I/O 07/23/16 07/23/16 07/23/16 07/24/16 07/24/16 07/24/16 07:00 15:00 23:00 07:00 15:00 23:00 Intake Total 720 ml 240 ml 240 ml Output Total 35 ml 50 ml Balance -35 ml 670 ml 240 ml 240 ml Intake Oral 720 ml 240 ml 240 ml Drainage Total 35 ml 50 ml # Voids 4 1 3 # Bowel Movements 3 0 0 Result Diagram: 07/23/1690007/23/16900 Objective Remarks GENERAL: in NAD CARDIOVASCULAR: Regular rate and rhythm without murmurs, gallops, or rubs. RESPIRATORY: Breath sounds equal bilaterally. No accessory muscle use. GASTROINTESTINAL: Abdomen soft, non-tender, nondistended. SKIN: left groin with wound dressing. LE B/L feet warm. faint B/L DP pulses. + trace putting edema that improved in left leg. Medications and IVs Current Medications Sodium Chloride (NS 1000 ml Inj) 1,000 ml @ 100 mls/hr Q10H IV Last administered on 07/19/16t 15:05; Start 07/19/16 at 07:45; Stop 07/20/16 at 17:17; Status DC Midazolam HCl (Versed Inj) 5 mg STK-MED ONCE .ROUTE Last administered on 10:45; Start 07/19/16 at 10:45; Stop 07/19/16 at 10:46; Status DC Fentanyl Citrate (fentaNYL INJ) 250 mcg STK-MED ONCE .ROUTE Last administered on 07/19/16 10:45; Start 07/19/16 at 10:45; Stop 07/19/16 at 10:46; Status DC Midazolam HCl (Versed Inj) 5 mg STK-MED ONCE .ROUTE Last administered on 11:43; Start 07/19/16 at 11:43; Stop 07/19/16 at 11:44; Status DC Fentanyl Citrate (fentaNYL INJ) 250 mcg STK-MED ONCE .ROUTE Last administered on 07/19/16 11:43; Start 07/19/16 at 11:43; Stop 07/19/16 at 11:44; Status DC Heparin Sodium (Porcine) 59280 units 10,000 units STK-MED ONCE .ROUTE Last administered on 07/19/16 11:46; Start 07/19/16 at 11:46; Stop 07/19/16 at 11:47; Status DC Sodium Chloride (NS 1000 ml Inj) 1,000 ml @ 100 mls/hr Q10H IV ; Start 07/19/16 at 13:25; Stop 07/19/16 at 23:24; Status DC Acetaminophen (Tylenol) 650 mg Q4H PRN PO PAIN SCALE 1 TO 10 Last administered on 07/23/16 15:19; Start 07/19/16 at 13:30 Oxycodone/ Acetaminophen (Percocet 5-325 Mg) 1 tab Q4H PRN PO Pain not relieved by Tylenol; Start 07/19/16 at 13:30 Heparin Sodium (Porcine) (Heparin Inj) 10,000 units STK-MED ONCE OTHER Last administered on 07/19/16 13:37; Start 07/19/16 at 13:37; Stop 07/19/16 at 13:38; Status DC Iodixanol (Visipaque 320 Inj) 100 ml STK-MED ONCE I-ARTERIAL Last administered on 07/19/16 13:49; Start 07/19/16 at 13:49; Stop 07/19/16 at 13:50; Status DC Cefazolin Sodium (Ancef Inj) 1,000 mg STK-MED ONCE IV Last administered on 13:26; Start 07/19/16 at 13:26; Stop 07/19/16 at 15:37; Status DC Midazolam HCl (Versed Inj) 2 mg STK-MED ONCE .ROUTE ; Start 07/19/16 at 17:27; Stop 07/19/16 at 17:28; Status DC Fentanyl Citrate 250 mcg 250 mcg STK-MED ONCE .ROUTE ; Start 07/19/16 at 17:27; Stop 07/19/16 at 17:28; Status DC Sodium Chloride (NS 1000 ml Inj) 1,000 ml @ 100 mls/hr Q10H IV Last administered on 07/20/16 14:51; Start 07/19/16 at 17:28; Stop 07/23/16 at 20:51 ; Status DC IV Flush (NS Flush) 2 ml UNSCH PRN IVF FLUSH AFTER USING IV ACCESS; Start at 17:30 IV Flush (NS Flush) 2 ml BID IVF Last administered on 07/24/16 09:51; Start at 21:00 Ondansetron HCl (Zofran Inj) 4 mg Q6H PRN IV NAUSEA OR VOMITING; Start 07/19/16 at 17:30 Pantoprazole Sodium 40 mg 40 mg Q24H PO Last administered on 07/23/16 17:20; Start 07/19/16 at 18:00 Clindamycin Phosphate/Sodium Chloride (Cleocin Inj/NS Inj) 54 ml @ 108 mls/hr Q8H IV Last administered on 07/20/16 09:33; Start 07/19/16 at 18:00; Stop 07/20 at 10:29; Status DC Miscellaneous Information (Post-op Orders (for Pharmacy)) STAT ONCE XX ; Start 07/19/16 at 17:30; Stop 07/19/16 at 17:48; Status DC Oxycodone/ Acetaminophen (Percocet 5-325 Mg) 1 tab Q4H PRN PO PAIN SCALE 3 TO 5 Last administered on 07/20/16 12:23; Start 07/19/16 at 17:30 Morphine Sulfate (Morphine Inj) 4 mg Q2H PRN IV 6-10; Start 07/19/16 at 17:30 Naloxone HCl (Narcan Inj) 0.4 mg UNSCH PRN IV SEE LABEL COMMENTS; Start at 17:30 Enoxaparin Sodium (Lovenox Inj) 40 mg Q24H SQ Last administered on 07/23/16 15 :17; Start 07/20/16 at 16:00 Clopidogrel Bisulfate (Plavix) 75 mg DAILY PO Last administered on 07/24/16 09 :50; Start 07/19/16 at 18:00 Acetaminophen (Ofirmev Inj) 1,000 mg STK-MED ONCE IV Last administered on 18:04; Start 07/19/16 at 18:04; Stop 07/19/16 at 18:05; Status DC Miscellaneous Information ALL NURSING DEPARTME... UNSCH PRN XX SEE LABEL COMMENTS; Start 07/19/16 at 18:30; Stop 07/20/16 at 18:29; Status DC Diltiazem HCl 25 mg 25 mg STK-MED ONCE .ROUTE Last administered on 07/20/16 11 :49; Start 07/20/16 at 11:47; Stop 07/20/16 at 11:48; Status DC Diltiazem HCl/ Sodium Chloride (Cardizem Inj/NS Inj) 125 ml @ 0 mls/hr TITRATE IV Last administered on 07/20/16 13:00; Start 07/20/16 at 11:45; Stop at 14:27; Status DC Labetalol HCl (Trandate) 300 mg Q12HR PO Last administered on 07/24/16 09:51; Start 07/20/16 at 12:00 Propofol (Diprivan 200 Mg/20 ml Inj) 200 mg STK-MED ONCE IV ; Start 07/19/16 at 12:00; Stop 07/20/16 at 12:44; Status DC Ephedrine Sulfate (ePHEDrine/NS 25 MG/5 ML SYR) 25 mg STK-MED ONCE IV ; Start at 12:00; Stop 07/20/16 at 12:44; Status DC Ondansetron HCl 4 mg 4 mg STK-MED ONCE IV PUSH ; Start 07/19/16 at 12:00; Stop at 12:44; Status DC Lactated Ringer's 1,000 ml @ As Directed STK-MED ONCE IV ; Start 07/19/16 at 12: 00; Stop 07/20/16 at 12:44; Status DC Sodium Chloride 250 ml @ As Directed STK-MED ONCE IV ; Start 07/19/16 at 12:00; Stop 07/20/16 at 12:44; Status DC Sodium Chloride 500 ml @ As Directed STK-MED ONCE IV ; Start 07/19/16 at 12:00; Stop 07/20/16 at 12:44; Status DC Parenteral Electrolytes (Normosol R Inj) 4,000 ml @ As Directed STK-MED ONCE IV ; Start 07/19/16 at 12:00; Stop 07/20/16 at 12:44; Status DC Neostigmine Methylsulfate (Prostigmin Inj) 2 mg STK-MED ONCE IV ; Start 07/19/16 at 12:00; Stop 07/20/16 at 12:44; Status DC Phenylephrine HCl (Neosynephrine/ NS 1000 Mcg/10ml Syr) 1,000 mcg STK-MED ONCE IV ; Start 07/19/16 at 12:00; Stop 07/20/16 at 12:44; Status DC Heparin Sodium (Porcine) 28415 units 30,000 units STK-MED ONCE OTHER ; Start 07/19/16 at 12:00; Stop 07/20/16 at 12:50; Status DC Sodium Chloride (NS 500 ml Inj) 500 ml @ 0 mls/hr Q0M IV ; Start 07/20/16 at 14: 30; Stop 07/20/16 at 14:31; Status DC Lactulose (Lactulose Liq) 30 ml ONCE ONCE PO Last administered on 07/21/16t 17 :37; Start 07/21/16 at 17:00; Stop 07/21/16 at 17:01; Status DC Bisacodyl (Dulcolax Supp) 10 mg DAILY PRN RECTAL CONSTIPATION; Start 07/21/16 at 17:00 Calcium Carbonate (Tums Chew) 500 mg Q12HR CHEW Last administered on 07/24/16 09:50; Start 07/22/16 at 13:00 Enalaprilat (Vasotec Inj) 1.25 mg Q6H PRN IV PUSH SBP> OR = 180, DBP> OR = 100 ; Start 07/23/16 at 08:45 Potassium Chloride (KCl) 30 meq ONCE ONCE PO Last administered on 07/23/16 13 :18; Start 07/23/16 at 12:30; Stop 07/23/16 at 12:41; Status DC Non-Formulary Medication 1 tab DAILY PO BPM; Start 07/23/16 at 13:15; Status UNV Amlodipine Besylate (Norvasc) 5 mg DAILY PO Last administered on 07/24/16 09: 50; Start 07/23/16 at 13:30 Valsartan (Diovan) 160 mg DAILY PO Last administered on 07/24/16 09:50; Start 07/23/16 at 13:30 Hydrochlorothiazide (Microzide) 12.5 mg DAILY PO Last administered on 09:51; Start 07/23/16 at 13:30 A/P Assessment and Plan 71 y/o with sever PVD severe PVD -s/p left atherectomy with vessel perforation; femoral bypass graft on 07/20/16 -being managed by vascular. -doing well today. Brief episode of atrial fibrillation -due to post op. -stable and continues to be in sinus rhythm. -manager strategic consulted and said to continues to current regimen. HTN -home medication resumed and better controlled. Hypocalcemia -mildly decrease. -continue with TUMS. DVT prophylaxis -lovenox Discharge Planning patient is medically clear for discharge. can be d/c per Attending Dr. Alejo. I d/w charge nurse in regards to that. I did not accept any transfer to the medical service. Rosalba Foss MD Jul 24, 2016 12:14
[2016-07-24 15:46] VITALS: BP 107/54; PULSE 71; RESP 20; TEMP 98.1; O2SAT 96
[2016-07-24] MEDS: ENOXAPARIN SODIUM 40 MG/0.4 ML SYRINGE SQ SCH (16:18)
[2016-07-24] MEDS: PANTOPRAZOLE SOD 40 MG DELAYED RELEASE TAB PO SCH (16:18)
[2016-07-24] MEDS ORDERED: PLAV75TA29 PO (17:15)
--- NOTE | 2016-08-15 13:19 | MD ---
cc: CODI MULLIGAN MD ADMISSION DATE: 07/19/2016 DISCHARGE DATE: 07/24/2016 HISTORY OF PRESENT DISEASE This pleasant lady was admitted through the radiology department where she attempted revascularization of the left leg and due to malfunction of the device, the patient sustained laceration of the left femoral common femoral artery and external iliac arteries. I was called in consulted. The patient underwent emergent left external iliac and common femoral resection and iliac to superficial femoral artery bypass graft with an 8 mm [place]-Urban as well as reimplantation of the deep femoral artery and salvage of the vessel. Postoperatively, the patient did well. She spent the first night and half of day in intensive care and then was transferred to the floor. The patient was then mobilized. She had some problems with hypertension which were taken care of by the medical team. At the time of discharge, the patient has excellent distal pulses. She has a palpable posterior tibial and dopplerable dorsalis pedis pulse, strong popliteal pulse and palpable femoral pulse. The patient is discharged in stable condition with instruction to follow up in my office. Codi POWERS /5:17 PM /1:11 PM
== END 2016-07-24 20:07 | disposition home or self-care (01) | DRG 908 ==
LOC: HROP 07:22 → HRIP 07:25 → HCVR 12:26 → HROP 12:26 → HCVR 15:00 → HROP 15:00 → HCVR 18:54 → HROP 07-21 12:01 → HCVR 07-21 12:01 → HSDI 07-21 12:04 → UNDOADMIN 07-21 12:04 → HOCB 07-21 12:05 → HSDI 07-21 12:05 → HCVR 07-21 12:05 → HOCB 07-21 12:05 → HCVR 07-21 12:47 → HOCB 07-21 12:47 → N06A 07-21 13:42 → HCVR 07-21 13:42 → UNDOADMIN 07-21 15:00 → HOCB 07-21 15:00 → HROP 07-21 15:00 → HOCB 07-24 09:56 → UNDODISIN 07-24 20:07 → HROP 07-24 20:07
PROVIDERS: ADMIT Surgery; ATTEND Surgery
PROC: 04CL0ZZ Extirpation of Matter from Left Femoral Artery, Open Approach (ICD-10-PCS; 2016-07-19)
PROC: 04CL3ZZ Extirpation of Matter from Left Femoral Artery, Percutaneous Approach (ICD-10-PCS; 2016-07-19)
PROC: B41GYZZ Fluoroscopy of Left Lower Extremity Arteries using Other Contrast (ICD-10-PCS; 2016-07-19)
PROC: 041J0JJ Bypass Left External Iliac Artery to Left Femoral Artery with Synthetic Substitute, Open Approach (ICD-10-PCS; principal; 2016-07-19 12:53)
DX: I97.51 Accidental puncture and laceration of a circulatory system organ or structure during a circulatory system procedure (principal); I97.89 Other postprocedural complications and disorders of the circulatory system, not elsewhere classified; I95.9 Hypotension, unspecified; K76.0 Fatty (change of) liver, not elsewhere classified; J44.9 Chronic obstructive pulmonary disease, unspecified; E83.51 Hypocalcemia; I70.212 Atherosclerosis of native arteries of extremities with intermittent claudication, left leg; I10 Essential (primary) hypertension; G25.0 Essential tremor; E78.5 Hyperlipidemia, unspecified; L40.59 Other psoriatic arthropathy; R04.0 Epistaxis; Y92.234 Operating room of hospital as the place of occurrence of the external cause; Z87.891 Personal history of nicotine dependence; Z88.2 Allergy status to sulfonamides
CPT/HCPCS: 36430; 37225; 80048; 80053; 82805; 84155; 85014; 85018; 85025; 85027; 85610; 85730; 86850; 86900; 86901; 86920; 88304; 88311; 93005; 94150; 99152; 99153; C1714; C1757; C1760; C1768; C1769; C1884; C1887; C1894; J0131; J0690; J1644; J1650; J2250; J2370; J2405; J2710; J3010; J7030; J7040; J7050; J7120; P9016; Q9967